=== PATIENT | male | born 1965 | race Caucasian/White ===

== ENCOUNTER → 2018-09-16 | Outpatient (CLI) | payer BC ==
--- NOTE | 2018-09-16 16:57 | XR ---
EXAMINATION TYPE: XR forearm RT DATE OF EXAM: 09/16/2018 COMPARISON: NONE HISTORY: 53-year-old male mid right forearm pain after hit with hockey puck TECHNIQUE: 2 views FINDINGS: The elbow and wrist articulations appear grossly intact. Obliquity at the elbow limits assessment for elbow joint effusion. No acute fracture is identified. No retained radiopaque foreign body. No perio stitis or osteolysis. IMPRESSION: No acute osseous abnormality seen.
== END | disposition home or self-care (01) ==
LOC: RADXRYALE 14:11
PROVIDERS: ATTEND Physician Assistant Medical
DX: M79.631 Pain in right forearm (principal)

== ENCOUNTER 2021-05-25 13:36 | Emergency (ER) | payer BC ==
[2021-05-25 13:43] VITALS: BP 155/101; PULSE 89; RESP 18; TEMP 98.2
[2021-05-25] MEDS ORDERED: LIDOCAINE 1% INJ 10MG/ML (20 ML MDV) SQ ONE (13:55)
[2021-05-25] MEDS ORDERED: DIPH,PERTUS(ACELL)TETVAC-LF 0.5 ML VIAL IM ONE (13:55)
--- NOTE | 2021-05-25 13:57 | ED ---
General Adult HPI - General Chief complaint: Wound/Laceration Stated complaint: L hand thumb laceration Time Seen by Provider: 05/25/21 13:50 Source: patient Mode of arrival: ambulatory Limitations: no limitations - History of Present Illness Initial comments: Dictation was produced using [employer] dictation software. please excuse any grammatical, word or spelling errors. Chief Complaint: 56-year-old male presents with thumb versus table saw History of Present Illness: 56-year-old male he has no significant past medical history he was working on his table saw when his finger fairly brushed the moving table saw blade. He suffered a laceration. Patient states just happened 30 minutes prior to arrival. The ROS documented in this emergency department record has been reviewed and confirmed by me. Those systems with pertinent positive or negative responses have been documented in the HPI. All other systems are other negative and/or noncontributory. PHYSICAL EXAM: General Impression: Alert and oriented x3, not in acute distress HEENT: Normocephalic atraumatic, extra-ocular movements intact, pupils equal and reactive to light bilaterally, mucous membranes moist. Cardiovascular: Heart regular rate and rhythm Chest: Able to complete full sentences, no retractions, no tachypnea Abdomen: abdomen soft, non-tender, non-distended, no organomegaly Musculoskeletal: Pulses present and equal in all extremities, no peripheral edema Motor: no focal deficits noted Neurological: CN II-XII grossly intact, no focal motor or sensory deficits noted Skin: Intact with no visualized rashes Left thumb: 3 cm laceration to the pad of the left thumb, no signs of amputation Psych: Normal affect and mood ED course: 56 y Old male presents with laceration to the left thumb after table saw accident. vital signs upon arrival are within acceptable limits. X-rays unremarkable. Laceration was repaired at bedside. See laceration note. Patient discharged with instructions for suture removal in 7-10 days. - Related Data Allergies Allergy/AdvReac Type Severity Reaction Status Date / Time No Known Allergies Allergy Verified 05/25/21 13:43 Review of Systems ROS Statement: Those systems with pertinent positive or pertinent negative responses have been documented in the HPI. ROS Other: All systems not noted in ROS Statement are negative. Past Medical History Past Medical History: No Reported History History of Any Multi-Drug Resistant Organisms: None Reported Past Surgical History: Hernia Repair Past Psychological History: No Psychological Hx Reported Smoking Status: Never smoker Past Alcohol Use History: Daily Past Drug Use History: None Reported General Exam Limitations: no limitations Course Vital Signs 05/25/21 13:39 Temperature 98.2 F Pulse Rate 89 Respiratory 18 Rate Blood Pressure 155/101 O2 Sat by Pulse 98 Oximetry Procedures - Laceration Laceration #1 Consent Obtained: verbal consent Indication: laceration Site: hand (left thumb) Description: irregular Depth: simple, single layer Anesthetic Used: lidocaine 1% Pre-repair: wound explored, irrigated extensively, deep structures intact Type of Sutures: nylon (6 stitches) Size of Sutures: 4-0 Technique: simple, interrupted Patient Tolerated Procedure: well Disposition Clinical Impression: Laceration Disposition: HOME SELF-CARE Condition: Good Instructions (If sedation given, give patient instructions): Laceration (ED), Care For Your Stitches (ED) Additional Instructions: Suture removal in 7-10 days. Wash with warm soap and water on a daily basis. Seek medical attention if skin starts to appear red and painful, which may be a sign of infection. Is patient prescribed a controlled substance at d/c from ED?: No Referrals: Ronald Logan DO [Primary Care Provider] - 1-2 days
--- NOTE | 2021-05-25 14:19 | XR ---
EXAMINATION TYPE: XR finger LT DATE OF EXAM: 05/25/2021 COMPARISON: NONE HISTORY: Laceration TECHNIQUE: 3 views left thumb FINDINGS: I see no fracture nor dislocation. There is no sign of a foreign body. There is rounded saleem cification on the posterior aspect of the IP joint that could relate to an old injury. There is laceration defect of the soft tissues on the anterior aspect of the distal phalanx. IMPRESSION: No acute bony abnormality. Laceration deformity.
== END 2021-05-25 14:51 | disposition home or self-care (01) ==
LOC: EC 13:36
DX: S61.012A Laceration without foreign body of left thumb without damage to nail, initial encounter (principal); W27.0XXA Contact with workbench tool, initial encounter
CPT/HCPCS: 12002; 99283; 73140; J2001

== ENCOUNTER 2021-12-04 14:11 | Inpatient (IN) | payer BC ==
[2021-12-04 14:59] LABS: Basophils # (A) 0.1 k/uL (0-0.2); Basophils % (A) 0 %; Eosinophils % (A) 0 %; HCT 50.9 % (39.0-53.0); HGB 17.7 gm/dL (13.0-17.5); Lymphocytes # (A) 0.6 k/uL (1.0-4.8); Lymphocytes % (A) 5 %; MCH 32.3 pg (25.0-35.0); MCHC 34.8 g/dL (31.0-37.0); MCV 93.1 fL (80.0-100.0); Mean Platelet Volume 7.7; Monocytes # (A) 0.5 k/uL (0-1.0); Monocytes % (A) 4 %; Neutrophils # (A) 10.9 k/uL (1.3-7.7); Neutrophils % (A) 89 %; Platelet Count 127 k/uL (150-450); RBC 5.47 m/uL (4.30-5.90); RDW 12.9 % (11.5-15.5); WBC 12.2 k/uL (3.8-10.6)
[2021-12-04 15:11] LABS: ALT 333 U/L (4-49); AST 102 U/L (17-59); African American GFR (CKD) >90 (>60 ml/min/1.73 sqM); Albumin 2.9 g/dL (3.5-5.0); Alkaline Phosphatase 85 U/L (38-126); Anion Gap 9 mmol/L; Blood Urea Nitrogen 19 mg/dL (9-20); Calcium 8.4 mg/dL (8.4-10.2); Carbon Dioxide 19 mmol/L (22-30); Chloride 109 mmol/L (98-107); Glucose 169 mg/dL (74-99); Non-African American GFR(CKD) >90 (>60 ml/min/1.73 sqM); Potassium 4.8 mmol/L (3.5-5.1); Sodium 137 mmol/L (137-145); Total Bilirubin 1.6 mg/dL (0.2-1.3); Total Protein 6.7 g/dL (6.3-8.2)
[2021-12-04 15:14] LABS: INR 1.3 (<1.2); Prothrombin Time 13.4 sec (9.0-12.0)
[2021-12-04 15:15] LABS: Partial Thromboplastin Time 18.6 sec (22.0-30.0)
--- NOTE | 2021-12-04 15:19 | XR ---
EXAMINATION TYPE: XR chest 1V portable DATE OF EXAM: 12/04/2021 COMPARISON: None INDICATION: Pneumonia short of breath fever TECHNIQUE: Single frontal view of the chest is obtained. FINDINGS: The heart size is normal. The pulmonary vasculature is normal. Patchy diffuse infiltrates are present within the periphery of the lungs bilaterally. This varies sli ghtly more focal left lower lobe. Findings could be suggestive for atypical pulmonary edema. Clinical correlation recommended. IMPRESSION: 1. Peripheral scattered small infiltrates can be compatible with atypical pneumonia.
--- NOTE | 2021-12-04 16:31 | ED ---
General Adult HPI - General Chief complaint: Shortness of Breath Stated complaint: ANGELA Time Seen by Provider: 12/04/21 14:25 Source: EMS Mode of arrival: EMS Limitations: no limitations - History of Present Illness Initial comments: Patient is a 56-year-old previous healthy male presents emergency room with reported cough, congestion and shortness of for the past 3 weeks. He has had intermittent fevers which have subsided. He has been following with a tele- health doctor that has him on steroids, an inhaler and ivermectin. He has been taking the medications as directed however continues to get worse. Admits to diarrhea and palpitations. No nausea or vomiting. Denies any chest pain. No previous history of pulmonary or cardiac issues. Patient presents via EMS and is 83% on room air. No other alleviating, precipitating or modifying factors - Related Data Home Medications Medication Instructions Recorded Confirmed Benzonatate [Tessalon Perles] 200 mg PO TID PRN 12/04/21 12/04/21 Budesonide [Pulmicort Flexhaler] 2 puff INHALATION RT-BID 12/04/21 12/04/21 Colchicine 0.6 mg PO HS 12/04/21 12/04/21 Colchicine 1.2 mg PO DAILY 12/04/21 12/04/21 Allergies Allergy/AdvReac Type Severity Reaction Status Date / Time No Known Allergies Allergy Verified 12/04/21 15:21 Review of Systems ROS Statement: Those systems with pertinent positive or pertinent negative responses have been documented in the HPI. ROS Other: All systems not noted in ROS Statement are negative. Past Medical History Past Medical History: No Reported History History of Any Multi-Drug Resistant Organisms: None Reported Past Surgical History: Hernia Repair Past Psychological History: No Psychological Hx Reported Smoking Status: Never smoker Past Alcohol Use History: Daily Past Drug Use History: None Reported - Past Family History Father Additional Family Medical History / Comment(s): Heart Stent Mother Family Medical History: Cancer Additional Family Medical History / Comment(s): General Exam Limitations: no limitations General appearance: alert, in distress Head exam: Present: atraumatic, normocephalic, normal inspection Eye exam: Present: normal appearance, PERRL, EOMI. Absent: scleral icterus, conjunctival injection, periorbital swelling ENT exam: Present: normal exam, mucous membranes moist Neck exam: Present: normal inspection. Absent: tenderness, meningismus, lymphadenopathy Respiratory exam: Present: normal lung sounds bilaterally, respiratory distress, accessory muscle use, other (tachypnia). Absent: wheezes, rales, rhonchi, stridor Cardiovascular Exam: Present: regular rate, normal rhythm, tachycardia, normal heart sounds. Absent: systolic murmur, diastolic murmur, rubs, gallop, clicks GI/Abdominal exam: Present: soft, normal bowel sounds. Absent: distended, tenderness, guarding, rebound, rigid Extremities exam: Present: normal inspection, full ROM, normal capillary refill. Absent: tenderness, pedal edema, joint swelling, calf tenderness Back exam: Present: normal inspection Neurological exam: Present: alert, oriented X3, CN II-XII intact Psychiatric exam: Present: normal affect, normal mood Skin exam: Present: warm, dry, intact, normal color. Absent: rash Course Vital Signs 12/04/21 12/04/21 12/04/21 14:24 17:28 19:33 Temperature 99 F 98.2 F Pulse Rate 105 H 93 86 Respiratory 18 18 Rate Blood Pressure 133/98 116/86 O2 Sat by Pulse 83 L 95 Oximetry 12/04/21 12/04/21 12/04/21 19:46 20:00 22:13 Temperature Pulse Rate 86 78 Respiratory 26 H Rate Blood Pressure 115/87 O2 Sat by Pulse 94 L 94 L Oximetry EKG Findings - EKG Comments: EKG Findings:: EKG demonstrates sinus tachycardia with a ventricular rate of 106. Irritable 184. QRS 128. QTC of 491. No acute ST segment elevations or depressions concerning for ischemic changes Medical Decision Making - Medical Decision Making Arrival patient is placed in room 2. He is placed on 2 L of oxygen. Laboratory studies are conducted and a chest x-rays performed. Laboratory studies reveal a white count of 12.2. Platelet count 127. AST and ALTs are elevated. Covid is detected. Chest x-ray demonstrates peripheral scattered small infiltrates consistent with a atypical pneumonia. These results are discussed patient. As he is hypoxic I did recommend admission. Spoke with Dr. Marr who agreed to admit the patient. He is currently awaiting a bed on the floor - Lab Data Result diagrams: 12/06/21 08:42 12/06/21 08:42 Lab Results 12/04/21 12/04/21 12/04/21 Range/Units 14:46 14:46 14:46 WBC 12.2 H (3.8-10.6) k/uL RBC 5.47 (4.30-5.90) m/uL Hgb 17.7 H (13.0-17.5) gm/dL Hct 50.9 (39.0-53.0) % MCV 93.1 (80.0-100.0) fL MCH 32.3 (25.0-35.0) pg MCHC 34.8 (31.0-37.0) g/dL RDW 12.9 (11.5-15.5) % Plt Count 127 L (150-450) k/uL MPV 7.7 Neutrophils % 89 % Lymphocytes % 5 % Monocytes % 4 % Eosinophils % 0 % Basophils % 0 % Neutrophils # 10.9 H (1.3-7.7) k/uL Lymphocytes # 0.6 L (1.0-4.8) k/uL Monocytes # 0.5 (0-1.0) k/uL Eosinophils # 0.0 (0-0.7) k/uL Basophils # 0.1 (0-0.2) k/uL PT 13.4 H (9.0-12.0) sec INR 1.3 H (<1.2) APTT 18.6 L (22.0-30.0) sec D-Dimer (<0.60) mg/L FEU Sodium 137 (137-145) mmol/L Potassium 4.8 (3.5-5.1) mmol/L Chloride 109 H (98-107) mmol/L Carbon Dioxide 19 L (22-30) mmol/L Anion Gap 9 mmol/L BUN 19 (9-20) mg/dL Creatinine 0.90 (0.66-1.25) mg/dL Est GFR (CKD-EPI)AfAm >90 (>60 ml/min/1.73 sqM) Est GFR (CKD-EPI)NonAf >90 (>60 ml/min/1.73 sqM) Glucose 169 H (74-99) mg/dL Plasma Lactic Acid [place] (0.7-2.0) mmol/L Calcium 8.4 (8.4-10.2) mg/dL Total Bilirubin 1.6 H (0.2-1.3) mg/dL AST 102 H (17-59) U/L ALT 333 H (4-49) U/L Alkaline Phosphatase 85 (38-126) U/L Troponin I (0.000-0.034) ng/mL NT-Pro-B Natriuret Pep pg/mL Total Protein 6.7 (6.3-8.2) g/dL Albumin 2.9 L (3.5-5.0) g/dL Procalcitonin (0.02-0.09) ng/mL Influenza Type A (PCR) (Not Detectd) Influenza Type A RNA (Not Detectd) Influenza Type B (PCR) (Not Detectd) RSV (PCR) (Not Detectd) SARS-CoV-2 (PCR) (Not Detectd) 12/04/21 12/04/21 12/04/21 Range/Units 14:46 14:46 14:46 WBC (3.8-10.6) k/uL RBC (4.30-5.90) m/uL Hgb (13.0-17.5) gm/dL Hct (39.0-53.0) % MCV (80.0-100.0) fL MCH (25.0-35.0) pg MCHC (31.0-37.0) g/dL RDW (11.5-15.5) % Plt Count (150-450) k/uL MPV Neutrophils % % Lymphocytes % % Monocytes % % Eosinophils % % Basophils % % Neutrophils # (1.3-7.7) k/uL Lymphocytes # (1.0-4.8) k/uL Monocytes # (0-1.0) k/uL Eosinophils # (0-0.7) k/uL Basophils # (0-0.2) k/uL PT (9.0-12.0) sec INR (<1.2) APTT (22.0-30.0) sec D-Dimer (<0.60) mg/L FEU Sodium (137-145) mmol/L Potassium (3.5-5.1) mmol/L Chloride (98-107) mmol/L Carbon Dioxide (22-30) mmol/L Anion Gap mmol/L BUN (9-20) mg/dL Creatinine (0.66-1.25) mg/dL Est GFR (CKD-EPI)AfAm (>60 ml/min/1.73 sqM) Est GFR (CKD-EPI)NonAf (>60 ml/min/1.73 sqM) Glucose (74-99) mg/dL Plasma Lactic Acid [place] 1.3 (0.7-2.0) mmol/L Calcium (8.4-10.2) mg/dL Total Bilirubin (0.2-1.3) mg/dL AST (17-59) U/L ALT (4-49) U/L Alkaline Phosphatase (38-126) U/L Troponin I <0.012 (0.000-0.034) ng/mL NT-Pro-B Natriuret Pep 52 pg/mL Total Protein (6.3-8.2) g/dL Albumin (3.5-5.0) g/dL Procalcitonin (0.02-0.09) ng/mL Influenza Type A (PCR) (Not Detectd) Influenza Type A RNA (Not Detectd) Influenza Type B (PCR) (Not Detectd) RSV (PCR) (Not Detectd) SARS-CoV-2 (PCR) (Not Detectd) 12/04/21 12/04/21 12/04/21 Range/Units 14:46 14:46 14:46 WBC (3.8-10.6) k/uL RBC (4.30-5.90) m/uL Hgb (13.0-17.5) gm/dL Hct (39.0-53.0) % MCV (80.0-100.0) fL MCH (25.0-35.0) pg MCHC (31.0-37.0) g/dL RDW (11.5-15.5) % Plt Count (150-450) k/uL MPV Neutrophils % % Lymphocytes % % Monocytes % % Eosinophils % % Basophils % % Neutrophils # (1.3-7.7) k/uL Lymphocytes # (1.0-4.8) k/uL Monocytes # (0-1.0) k/uL Eosinophils # (0-0.7) k/uL Basophils # (0-0.2) k/uL PT (9.0-12.0) sec INR (<1.2) APTT (22.0-30.0) sec D-Dimer 30.87 H (<0.60) mg/L FEU Sodium (137-145) mmol/L Potassium (3.5-5.1) mmol/L Chloride (98-107) mmol/L Carbon Dioxide (22-30) mmol/L Anion Gap mmol/L BUN (9-20) mg/dL Creatinine (0.66-1.25) mg/dL Est GFR (CKD-EPI)AfAm (>60 ml/min/1.73 sqM) Est GFR (CKD-EPI)NonAf (>60 ml/min/1.73 sqM) Glucose (74-99) mg/dL Plasma Lactic Acid [place] (0.7-2.0) mmol/L Calcium (8.4-10.2) mg/dL Total Bilirubin (0.2-1.3) mg/dL AST (17-59) U/L ALT (4-49) U/L Alkaline Phosphatase (38-126) U/L Troponin I (0.000-0.034) ng/mL NT-Pro-B Natriuret Pep pg/mL Total Protein (6.3-8.2) g/dL Albumin (3.5-5.0) g/dL Procalcitonin (0.02-0.09) ng/mL Influenza Type A (PCR) Not Detected (Not Detectd) Influenza Type A RNA Not Detected (Not Detectd) Influenza Type B (PCR) Not Detected Not Detected (Not Detectd) RSV (PCR) Not Detected (Not Detectd) SARS-CoV-2 (PCR) Detected A (Not Detectd) 12/04/21 Range/Units 14:46 WBC (3.8-10.6) k/uL RBC (4.30-5.90) m/uL Hgb (13.0-17.5) gm/dL Hct (39.0-53.0) % MCV (80.0-100.0) fL MCH (25.0-35.0) pg MCHC (31.0-37.0) g/dL RDW (11.5-15.5) % Plt Count (150-450) k/uL MPV Neutrophils % % Lymphocytes % % Monocytes % % Eosinophils % % Basophils % % Neutrophils # (1.3-7.7) k/uL Lymphocytes # (1.0-4.8) k/uL Monocytes # (0-1.0) k/uL Eosinophils # (0-0.7) k/uL Basophils # (0-0.2) k/uL PT (9.0-12.0) sec INR (<1.2) APTT (22.0-30.0) sec D-Dimer (<0.60) mg/L FEU Sodium (137-145) mmol/L Potassium (3.5-5.1) mmol/L Chloride (98-107) mmol/L Carbon Dioxide (22-30) mmol/L Anion Gap mmol/L BUN (9-20) mg/dL Creatinine (0.66-1.25) mg/dL Est GFR (CKD-EPI)AfAm (>60 ml/min/1.73 sqM) Est GFR (CKD-EPI)NonAf (>60 ml/min/1.73 sqM) Glucose (74-99) mg/dL Plasma Lactic Acid [place] (0.7-2.0) mmol/L Calcium (8.4-10.2) mg/dL Total Bilirubin (0.2-1.3) mg/dL AST (17-59) U/L ALT (4-49) U/L Alkaline Phosphatase (38-126) U/L Troponin I (0.000-0.034) ng/mL NT-Pro-B Natriuret Pep pg/mL Total Protein (6.3-8.2) g/dL Albumin (3.5-5.0) g/dL Procalcitonin 0.09 (0.02-0.09) ng/mL Influenza Type A (PCR) (Not Detectd) Influenza Type A RNA (Not Detectd) Influenza Type B (PCR) (Not Detectd) RSV (PCR) (Not Detectd) SARS-CoV-2 (PCR) (Not Detectd) Disposition Clinical Impression: Hypoxia, Atypical pneumonia, COVID-19 Disposition: ADMITTED IP TO THIS HOSP Condition: Serious Is patient prescribed a controlled substance at d/c from ED?: No Decision to Admit Reason: Admit from EC Decision Date: 12/04/21 Decision Time: 16:32
[2021-12-04] MEDS ORDERED: IBUPROFEN 400 MG TAB PO PRN (16:33)
[2021-12-04] MEDS ORDERED: NALOXONE 0.4 MG/ML 1 ML VIAL IV PRN (16:33)
[2021-12-04] MEDS ORDERED: ACETAMINOPHEN TAB 325 MG TAB PO PRN (16:33)
[2021-12-04] MEDS: SODIUM CHLORIDE 0.9% 1,000 ML IV SCH (17:27)
[2021-12-04] MEDS: DEXAMETHASONE SOD PHOSPHATE 10 MG/ML 1 ML VIAL IV SCH (17:27)
[2021-12-04] MEDS: CHOLECALCIFEROL 25 MCG (1000 IU) TABLET PO SCH (17:28)
[2021-12-04] MEDS: ENOXAPARIN 40 MG/0.4 ML SYRINGE SQ SCH (17:28)
--- NOTE | 2021-12-04 17:56 | HP ---
HISTORY AND PHYSICAL CHIEF COMPLAINT: Shortness of breath and cough. HISTORY OF PRESENT ILLNESS: This 56-year-old gentleman with a past history of hernia repair, no other significant medical illness, being followed by Dr. Logan in the outpatient setting is complaining of cough and sputum for the last 4 weeks. The patient did not test for Covid but around Mayra time, patient felt better, but subsequently because of increasing shortness of breath and cough, the patient came to [facility] and was admitted to the hospital for further evaluation and treatment. Pulse ox found to be 76% improved with supplemental oxygen at this time. The patient is apparently also seeing a doctor near [place] over the telephone and is getting Covid medications according to him including Ivermectin. There is no history of any fever, rigors or chills. No history of headache, loss of consciousness, seizures. On admission, the patient is found to have elevated WBC and also elevated LFTs indicating possible acute hepatitis secondary to Covid 19. Influenza is negative. The patient also was found to be dehydrated. The p.o. intake appears to be significantly reduced over the past several weeks. PAST MEDICAL HISTORY: History of hernia repair. MEDICATIONS: Prior to admission reviewed and include: 1. Colchicine 1.2 mg daily and 0.6 mg q.h.s. 2. Pulmicort 2 puffs b.i.d. 3. Tessalon 200 mg t.i.d. p.r.n. ALLERGIES: None. FAMILY HISTORY: No history of heart disease or strokes. SOCIAL HISTORY: History of alcohol daily. No history of smoking. 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 REVIEW OF SYSTEMS: ENT: No diminished vision. No diminished hearing. CARDIOVASCULAR: No angina or palpitations. RESPIRATORY: As mentioned earlier. GI as mentioned earlier. : No dysuria. NERVOUS SYSTEM: No numbness or weakness. ALLERGY/IMMUNOLOGY: No asthma or hayfever. MUSCULOSKELETAL: As mentioned earlier. HEMATOLOGY/ONCOLOGY: No history of anemia. ENDOCRINE: No history of diabetes. CONSTITUTIONAL: As mentioned earlier. DERMATOLOGY: Negative. RHEUMATOLOGY: Negative. PSYCHIATRIC: As mentioned earlier. PHYSICAL EXAMINATION: The patient is alert and oriented times three. Pulse 105. Blood pressure 130/90, respiration 18, temperature 99 degrees, pulse ox 83 percent on room air. HEENT is conjunctivae normal. Oral mucosa dry. NECK is no JVD. CARDIOVASCULAR: S1, S2 muffled. RESPIRATORY: Breath sounds diminished in the bases. ABDOMEN: Soft. Nontender. No mass palpable. LEGS: No edema. No swelling. NERVOUS SYSTEM: Higher functions as mentioned earlier. Moves all 4 limbs. No focal motor or sensory deficits. LYMPHATICS: No lymph nodes palpable in the neck, axillae or groin. SKIN: No ulcer, no rash and no bleeding. JOINTS: No active deforming arthropathy. LABS: At this time shows WBC 12.2, hemoglobin 17.7, platelets are 127. Sodium 137, potassium 4.8. AST is 102, ALT is 333. ASSESSMENT: 1. Acute Covid 19 infection possibly with acute bilateral interstitial pneumonia with acute hypoxic respiratory failure secondary to Covid 19. 2. Increased WBC. 3. Increased hemoglobin. 4. Thrombocytopenia. 5. Elevated INR. 6. Increased random glucose. 7. Elevated bilirubin, AST/ALT possibly hepatitis secondary to Covid 19. 8. Hypoalbuminemia with some mild protein-calorie malnutrition. 9. Rule out chronic liver disease. RECOMMENDATIONS AND DISCUSSION: This 56-year-old gentleman who presented with multiple complex medical issues, we will monitor the patient closely, continue the current medications. I will order a D-dimer. If the D-dimer is elevated, I would recommend a CT angio as well as DVT of the legs. Otherwise obtain cultures, procalcitonin, bronchodilators, Lovenox, Dexamethasone, Pulmonology and Infectious Disease evaluation. Prognosis guarded because of multiple medical problems. Discussed with the family at length, understands and agrees. A copy of this dictation being forwarded to Dr. Logan who is the primary care physician. MMODL / ENRIQUEN: [id number] / MTDHollis
[2021-12-04] MEDS ORDERED: ALBUTEROL NEBULIZED 2.5 MG/3 ML INHALATION SCH (20:00)
--- NOTE | 2021-12-04 20:03 | CT ---
EXAMINATION TYPE: CT angio chest DATE OF EXAM: 12/04/2021 COMPARISON: None HISTORY: SOB, +covid CT DLP: 449.2 mGycm Automated exposure control for dose reduction was used. CONTRAST: Performed with IV Contrast, patient injected with 100 mL of Isovue 370. Images obtained from the thoracic inlet to the diaphragm with IV contrast. There are Three-D postproc essed images. There is extensive patchy interstitial and airspace peripheral infiltrates throughout both lungs. Hea rt size is normal. There are no hilar masses. Thoracic aorta is intact. There is no aneurysm or disse ction. There is normal contrast opacification of the pulmonary arteries. There is suboptimal amount of contr ast density in the smaller branches of the pulmonary arteries. There are no filling defect. The thora cic spine is intact. Sternum is intact. IMPRESSION: No evidence of pulmonary embolism. Extensive bilateral pulmonary infiltrates consistent with multifocal pneumonia.
[2021-12-05] MEDS: ALBUTEROL HFA INHALER INHALATION SCH ×4 (04:16→20:38)
[2021-12-05] MEDS: SODIUM CHLORIDE 0.9% 1,000 ML IV SCH ×2 (06:46→21:24)
[2021-12-05 07:30] LABS: Basophils % (A) 0 %; Eosinophils % (A) 0 %; HGB 16.5 gm/dL (13.0-17.5); Lymphocytes # (A) 0.9 k/uL (1.0-4.8); Lymphocytes % (A) 9 %; MCH 32.3 pg (25.0-35.0); MCHC 33.7 g/dL (31.0-37.0); MCV 95.9 fL (80.0-100.0); Mean Platelet Volume 11.2; Monocytes # (A) 0.7 k/uL (0-1.0); Monocytes % (A) 7 %; Neutrophils # (A) 8.3 k/uL (1.3-7.7); Neutrophils % (A) 82 %; Platelet Count 124 k/uL (150-450); RBC 5.11 m/uL (4.30-5.90); WBC 10.1 k/uL (3.8-10.6)
[2021-12-05] MEDS: ENOXAPARIN 40 MG/0.4 ML SYRINGE SQ SCH (07:35)
[2021-12-05] MEDS: DEXAMETHASONE SOD PHOSPHATE 10 MG/ML 1 ML VIAL IV SCH (07:35)
[2021-12-05] MEDS: CHOLECALCIFEROL 25 MCG (1000 IU) TABLET PO SCH (07:36)
[2021-12-05 07:45] LABS: ALT 321 U/L (4-49); AST 90 U/L (17-59); African American GFR (CKD) >90 (>60 ml/min/1.73 sqM); Albumin 2.7 g/dL (3.5-5.0); Albumin/Globulin Ratio 0.8; Alkaline Phosphatase 71 U/L (38-126); Anion Gap 7 mmol/L; Blood Urea Nitrogen 20 mg/dL (9-20); Calcium 8.2 mg/dL (8.4-10.2); Carbon Dioxide 22 mmol/L (22-30); Chloride 109 mmol/L (98-107); Globulin 3.6 g/dL; Glucose 141 mg/dL (74-99); Non-African American GFR(CKD) >90 (>60 ml/min/1.73 sqM); Sodium 138 mmol/L (137-145); Total Bilirubin 1.4 mg/dL (0.2-1.3); Total Protein 6.3 g/dL (6.3-8.2)
[2021-12-05] MEDS ORDERED: bisacodyL 5 MG TABLET.DR PO PRN (07:51)
[2021-12-05] MEDS ORDERED: DOCUSATE 100 MG CAP PO SCH (09:00)
--- NOTE | 2021-12-05 11:21 | US ---
EXAMINATION TYPE: US venous doppler duplex LE DATE OF EXAM: 12/05/2021 10:52 AM COMPARISON: NONE CLINICAL HISTORY: dvt. COVID positive with swelling. Exam done portable on covid patient SIDE PERFORMED: Bilateral TECHNIQUE: The lower extremity deep venous system is examined utilizing real time linear array sonog ebony with graded compression, doppler sonography and color-flow sonography. VESSELS IMAGED: Common Femoral Vein Deep Femoral Vein Greater Saphenous Vein * Femoral Vein Popliteal Vein Small Saphenous Vein * Proximal Calf Veins (* superficial vessels) Right Leg: Appears negative for DVT Left Leg: Appears negative for DVT Left popliteal fossa and upper calf: thrombus seen within small saphenous vein Grayscale, color doppler, spectral doppler imaging performed of the deep veins of the bilateral lower extremities. IMPRESSION: No acute DVT in either lower extremity. Acute superficial thrombus left lower extremity below level of knee noted towards end of study.
--- NOTE | 2021-12-05 15:38 | P.CNPUL ---
History of Present Illness Consult date: 12/05/21 Requesting physician: Amarilys Marr Reason for consult: dyspnea, cough, hypoxemia, pneumonia, abnormal CXR/CT Chief complaint: Shortness of breath, cough, fever, weakness. History of present illness: Pulmonary consult dated 12/05/2021. 56-year-old previously healthy male, who presents to the emergency department on December 04, complaining of multiple complaints over the last 3 weeks, including fever, chills, cough, shortness of breath, muscle aches, weakness, etc. The patient apparently saw his primary doctor initially, and was treated with some corticosteroids and antibiotics. He states that that did nothing. More recently, he's been working with a tell how physician, and he was prescribed a steroid inhaler, colchicine, ivermectin, and a number of other treatments and therapies. The patient also apparently received Tessalon Perles, and a strong maybe codeine containing cough syrup. Unfortunately, his symptoms have progressed, and the patient is currently now admitted to the hospital. The patient is seen in room 479. Currently, the patient's getting oxygen at 7 L/m. Certainly, he is not a candidate for REM. The patient is not a candidate yet for IRENE. The patient had a chest x-ray which showed diffuse bilateral infiltrates. A CT angiogram showed bilateral diffuse groundglass opacities, but no pulmonary embolism, and Dopplers of the lower extremities were negative. The patient is a candidate for Decadron, Lovenox, and vitamin C, vitamin D3, and zinc. The patient has no past medical history, has only had a hernia repair, and is a lifelong nonsmoker. Review of Systems REVIEW OF SYSTEMS: CONSTITUTIONAL: Fever/chills, muscle aches, weakness, fatigue. NEUROLOGIC: [ Negative.] HEENT: [ Negative.] CARDIAC: [Negative.] PULMONARY: Shortness of breath, heart cough, chest congestion. GI: Decreased appetite. : [Negative.] RHEUMATOLOGIC: Muscle and joint aches. IMMUNOLOGIC: [ Negative.] ENDOCRINE: [Negative. ] DERMATOLOGIC: [Negative.] Past Medical History Past Medical History: No Reported History History of Any Multi-Drug Resistant Organisms: None Reported Past Surgical History: Hernia Repair Additional Past Surgical History / Comment(s): Thumb Surgery May 2021 Past Anesthesia/Blood Transfusion Reactions: Postoperative Nausea & Vomiting (PONV) Past Psychological History: No Psychological Hx Reported Smoking Status: Former smoker Past Alcohol Use History: Daily Past Drug Use History: None Reported - Past Family History Father Additional Family Medical History / Comment(s): Heart Stent Mother Family Medical History: Cancer Additional Family Medical History / Comment(s): Medications and Allergies Home Medications Medication Instructions Recorded Confirmed Type Benzonatate [Tessalon Perles] 200 mg PO TID PRN 12/04/21 12/04/21 History Budesonide [Pulmicort Flexhaler] 2 puff INHALATION RT-BID 12/04/21 12/04/21 History Colchicine 0.6 mg PO HS 12/04/21 12/04/21 History Colchicine 1.2 mg PO DAILY 12/04/21 12/04/21 History Allergies Allergy/AdvReac Type Severity Reaction Status Date / Time No Known Allergies Allergy Verified 12/04/21 15:21 Physical Exam Osteopathic Statement: *. No significant issues noted on an osteopathic structural exam other than those noted in the History and Physical/Consult. Vitals: Vital Signs Temp Pulse Pulse Resp BP BP Pulse Ox 12/05/21 14:40 98.0 F 82 14 100/64 98 12/05/21 10:15 97.9 F 104 H 24 133/79 93 L 12/05/21 06:00 98.0 F 87 18 118/81 94 L 12/05/21 02:00 98.0 F 78 18 118/83 93 L 12/05/21 00:40 85 21 12/05/21 00:35 97.8 F 85 21 121/81 94 L 12/04/21 22:13 78 26 H 115/87 94 L 12/04/21 20:00 94 L 12/04/21 19:46 86 12/04/21 19:33 86 12/04/21 17:28 98.2 F 93 18 116/86 95 Intake and Output 12/05/21 12/05/21 12/05/21 06:59 14:59 22:59 Intake Total 600 Balance 600 Intake: Intake, IV Titration 600 Amount Sodium Chloride 0.9% 1, 600 000 ml @ 75 mls/hr IV . [id number] [facility] Rx#:[id number] Other: Voiding Method Urinal # Voids 1 # Bowel Movements 1 Weight 102.058 kg Mild conversational dyspnea. Currently on 7 L high flow O2, with saturations 98%. No use of accessory muscles. HEENT examination is grossly unremarkable. Neck supple. Full range of motion. No adenopathy thyromegaly or neck vein di stention. Cardiovascular examination reveals regular rhythm rate. S1-S2 normal. No S3 or S4. No discernible murmur noted. Heart sounds are distant. Heart rate 82 bpm. Lungs reveal bibasilar crackles. No wheezes or rhonchi. Breath sounds equal. Abdomen soft bowel sounds are heard. No masses or tenderness. Extremities are intact. No cyanosis clubbing or edema. Skin is without rash or lesion. Neurologic examination is brief but nonfocal. Results - Laboratory Findings CBC and BMP: 12/05/21 02:04 12/05/21 02:04 PT/INR, D-dimer PT 13.4 sec (9.0-12.0) H 12/04/21 14:46 INR 1.3 (<1.2) H 12/04/21 14:46 D-Dimer 13.94 mg/L FEU (<0.60) H 12/05/21 08:06 Abnormal lab findings: Abnormal Labs 12/04/21 12/04/21 12/04/21 14:46 14:46 14:46 WBC 12.2 H Hgb 17.7 H Plt Count 127 L Neutrophils # 10.9 H Lymphocytes # 0.6 L PT 13.4 H INR 1.3 H APTT 18.6 L D-Dimer Chloride 109 H Carbon Dioxide 19 L Glucose 169 H Calcium Total Bilirubin 1.6 H AST 102 H ALT 333 H C-Reactive Protein Albumin 2.9 L SARS-CoV-2 (PCR) 12/04/21 12/04/21 12/05/21 14:46 14:46 02:04 WBC Hgb Plt Count 124 L Neutrophils # 8.3 H Lymphocytes # 0.9 L PT INR APTT D-Dimer 30.87 H Chloride Carbon Dioxide Glucose Calcium Total Bilirubin AST ALT C-Reactive Protein Albumin SARS-CoV-2 (PCR) Detected A 12/05/21 12/05/21 12/05/21 02:04 08:06 08:06 WBC Hgb Plt Count Neutrophils # Lymphocytes # PT INR APTT D-Dimer 13.94 H Chloride 109 H Carbon Dioxide Glucose 141 H Calcium 8.2 L Total Bilirubin 1.4 H AST 90 H ALT 321 H C-Reactive Protein 3.2 H Albumin 2.7 L SARS-CoV-2 (PCR) - Diagnostic Findings Chest x-ray: image reviewed CT scan - chest: image reviewed U/S of Legs: image reviewed Assessment and Plan Assessment: Acute hypoxemic respiratory failure, secondary to coronavirus associated pneumonia. Elevated inflammatory marker secondary to coronavirus infection. Mild transaminitis secondary to coronavirus infection. Mild hemoconcentration, likely secondary to dehydration. Mild thrombocytopenia. Plan: Plan dated 12/05/2021. The patient will require Decadron, Lovenox, as well as vitamin C, vitamin D3, and zinc. The patient should not receive colchicine, famotidine, ivermectin, or other non-approved therapies. The patient's x-rays, labs, medications are reviewed. The patient was previously healthy. The patient has been on a steroid inhaler, antibiotics colchicine, ivermectin, etc. Prognosis is guarded. I'm hoping the patient turns around. Time with Patient: Greater than 30
[2021-12-05 16:37] LABS: Appearance,Urine Clear (Clear); Bilirubin,Urine Negative (Negative); Blood,Urine Negative (Negative); Color,Urine Yellow; Glucose,Urine (UA) Negative (Negative); Ketones,Urine Negative (Negative); Leukocyte Esterase,Urine Negative (Negative); Nitrite,Urine Negative (Negative); PH, Urine 5.5 (5.0-8.0); Protein,Urine Trace (Negative); Urobilinogen,Urine <2.0 mg/dL (<2.0)
--- NOTE | 2021-12-05 18:09 | PN ---
PROGRESS NOTE DATE OF SERVICE: 12/05/2021 HISTORY OF PRESENT ILLNESS: This 56-year-old gentleman who was admitted with shortness of breath and cough has acute Covid-19, acute Covid-19 bilateral interstitial pneumonia. The patient is found to be hypoxic. The chest CTA showed extensive bilateral pulmonary infiltrates highly suggestive of Covid-19 pneumonia. Otherwise, there was no pulmonary embolism. The patient also underwent ultrasound of the leg which showed no evidence of any DVT at this time. The patient is being also followed by multiple consultants. Acute superficial thrombosis of the left lower extremity below the level of knee was noted towards the end of the study. PAST MEDICAL HISTORY: Reviewed. REVIEW OF SYSTEMS: Cardiovascular system: No angina. Respiratory system: As mentioned earlier. GI: As mentioned earlier. : No dysuria. Nervous system: No numbness or weakness. CURRENT MEDICATIONS: Reviewed include Tylenol, Ventolin, ( ), Symbicort, cholecalciferol, dexamethasone. Doses reviewed. PHYSICAL EXAMINATION: Patient is alert and oriented x3. Pulse 82, blood pressure 110/64, respiration 14, temperature 98 degrees, Pulse ox 98% on 7 L. HEENT: Conjunctivae normal. Oral mucosa moist. NECK: No jugular venous distention. No lymph node enlargement. CARDIOVASCULAR: S1, S2, muffled. No S3, no S4, RESPIRATORY: Diminished breath sounds at the bases. A few scattered rhonchi. ABDOMEN: Soft, nontender. LEGS: No edema, no swelling. NERVOUS SYSTEM: No focal deficits. LABS: The platelets are 124. Otherwise, D-dimer is 13.94 and ( ) is 3.2. Covid-19 is positive. ASSESSMENT: 1. Acute Covid-19 infection with acute bilateral interstitial pneumonia with acute hypoxic respiratory failure secondary to Covid-19. 2. Acute superficial thrombosis of the left lower extremity. 3. Increased WBC. 4. Increased hemoglobin. 5. Thrombocytopenia. 6. Elevated INR. 7. Increased random glucose. 8. Elevated bilirubin, AST, ALT possibly hepatitis secondary to Covid-19. 9. Hypoalbuminemia with some mild protein-calorie malnutrition. 10.Rule out chronic liver disease. RECOMMENDATIONS: Recommend to continue current medications, continue symptomatic treatment. Otherwise, at this time I recommend continue the current medication. I would also recommend ultrasound of the liver and hepatitis panel also. Otherwise, Dr. German for hematology/oncology evaluation. Guarded prognosis because of multiple complex medical issues. Further recommendations to follow. The patient is currently on Lovenox 40 mg subcu daily. MMODL / IJN: [id number] /
[2021-12-05] MEDS: SYMBICORT 160-4.5 MCG INHALER INHALATION SCH (20:38)
[2021-12-06] MEDS: ALBUTEROL HFA INHALER INHALATION SCH ×4 (08:06→19:36)
[2021-12-06] MEDS: SYMBICORT 160-4.5 MCG INHALER INHALATION SCH ×2 (08:07→19:34)
[2021-12-06] MEDS: ENOXAPARIN 40 MG/0.4 ML SYRINGE SQ SCH (08:46)
[2021-12-06] MEDS: ZINC SULFATE 220 MG CAP PO SCH (08:46)
[2021-12-06] MEDS: DEXAMETHASONE SOD PHOSPHATE 10 MG/ML 1 ML VIAL IV SCH (08:46)
[2021-12-06] MEDS: CHOLECALCIFEROL 25 MCG (1000 IU) TABLET PO SCH (08:46)
[2021-12-06] MEDS: ASCORBIC ACID 500 MG TAB PO SCH (08:46)
[2021-12-06] MEDS: SODIUM CHLORIDE 0.9% 1,000 ML IV SCH ×2 (08:48→22:29)
[2021-12-06 09:06] LABS: Basophils % (A) 0 %; Eosinophils # (A) 0.1 k/uL (0-0.7); Eosinophils % (A) 1 %; HCT 47.3 % (39.0-53.0); Lymphocytes # (A) 1.6 k/uL (1.0-4.8); Lymphocytes % (A) 18 %; MCH 32.3 pg (25.0-35.0); MCHC 33.9 g/dL (31.0-37.0); MCV 95.1 fL (80.0-100.0); Mean Platelet Volume 7.6; Monocytes # (A) 0.6 k/uL (0-1.0); Monocytes % (A) 7 %; Neutrophils # (A) 6.5 k/uL (1.3-7.7); Neutrophils % (A) 73 %; Platelet Count 151 k/uL (150-450); RBC 4.97 m/uL (4.30-5.90); RDW 12.9 % (11.5-15.5); WBC 8.8 k/uL (3.8-10.6)
[2021-12-06 09:21] LABS: ALT 245 U/L (4-49); AST 90 U/L (17-59); African American GFR (CKD) >90 (>60 ml/min/1.73 sqM); Albumin 2.5 g/dL (3.5-5.0); Albumin/Globulin Ratio 0.7; Alkaline Phosphatase 68 U/L (38-126); Anion Gap 1 mmol/L; Blood Urea Nitrogen 20 mg/dL (9-20); Calcium 8.1 mg/dL (8.4-10.2); Carbon Dioxide 27 mmol/L (22-30); Chloride 107 mmol/L (98-107); Globulin 3.5 g/dL; Glucose 88 mg/dL (74-99); LDH 1042 U/L (313-618); Non-African American GFR(CKD) 83 (>60 ml/min/1.73 sqM); Potassium 4.6 mmol/L (3.5-5.1); Sodium 135 mmol/L (137-145); Total Bilirubin 1.7 mg/dL (0.2-1.3)
--- NOTE | 2021-12-06 09:27 | P.CONS ---
History of Present Illness - Reason for Consult Consult date: 12/05/21 covid 19 Requesting physician: Amarilys Marr - Chief Complaint shortness of breath x 3 weeks - History of Present Illness History of present illness : Patient is a 56-year-old male presenting to the ER for evaluation of increasing shortness of breath cough and congestion in this patient has been complaining of shortness of breath for more than 10 days he reported to the ER physician 3 weeks patient complaining of intermittent fever, patient did have a telehealth visit with And has been treated with steroids inhaler and ivermectin however the patient did have a progressive worsening shortness of breath on minimal exertion and even at rest patient also have a cough which is moderate intensity but no purulent sputum but denies any nausea no vomiting no chest pain had no abdominal pain he did have some diarrhea on arrival to the emergency patient was hypoxic with O2 sats of 83% on room air with the 7 the patient was evaluated by ER physician on arrival to the ER the patient has been afebrile patient did have white count of 12 point 2 repeat is normal with evidence of lymphopenia D-dimer is elevated creatinine is normal liver sounds are elevated clay PCR was positive influenza and RSV were negative blood cultures apparently currently pending patient did have a chest x- ray peripheral scattered small infiltrate compatible with atypical pneumonia patient did have CT angiogram of the chest that has been negative for PE did shows extensive bilateral pulmonary infiltrate consistent with multifocal pneumonia patient has been admitted to hospital infectious disease was consulted for further management Review of system: CONSTITUTIONAL: Positive for weakness along with intermittent fever. EYES: No complaint. ENT: No complaint. RESPIRATORY as per history of present illness. CARDIOVASCULAR: No complaint. GENITOURINARY: No complaint. GASTROINTESTINAL: As per history of present illness. MUSCULOSKELETAL: No complaint. INTEGUMENTARY: No complaint. PSYCHOLOGIC: No complaint. ENDOCRINE: No complaint. NEUROLOGIC: No complaint. Past medical history : Reviewed, documented below Past surgical history : Reviewed, documented below Social history: Reviewed, documented below Medications: Reviewed, as documented below EXAMINATION: Vital sigans= Reviewed and documented below GENERAL DESCRIPTION: Middle-aged male lying in bed, no distress. No tachypnea or accessory muscle of respiration use. HEENT: Shows Pallor , no scleral icterus. Oral mucous membrane is dry. NECK: Trachea central, no thyromegaly. LUNGS: Unlabored breathing. Coarse breath sounds bilaterally. No wheeze or crackle. HEART: S1, S2, regular rate and rhythm. ABDOMEN: Soft, no tenderness , guarding or rigidity EXTREMITIES: No edema of feet. SKIN: No rash, no masses palpable. NEUROLOGICAL: The patient is awake, alert, oriented x3, mood and affect normal. LABS AND RADIOLOGY: Reviewed results see below Assessment : Patient presented to hospital with acute respiratory failure secondary to COVID-19 pneumonia in this patient symptom has been going on for more than 2 weeks now and is currently out of the therapeutic window for remdesivir patient seem to have failed to respond to the outpatient ivermectin and steroid therapy and evidence of any secondary bacterial pneumonia Plan: 1-patient to continue with the Decadron Lovenox zinc and ascorbic acid 2-if any worsening of respiratory status may qualify for Baricitinab 3-droplet isolation and respiratory support We will follow on clinical condition and cultures to further adjust medication if needed Thank you for this consultation we will follow the patient along with you Past Medical History Past Medical History: No Reported History History of Any Multi-Drug Resistant Organisms: None Reported Past Surgical History: Hernia Repair Additional Past Surgical History / Comment(s): Thumb Surgery May 2021 Past Anesthesia/Blood Transfusion Reactions: Postoperative Nausea & Vomiting (PONV) Past Psychological History: No Psychological Hx Reported Smoking Status: Former smoker Past Alcohol Use History: Daily Past Drug Use History: None Reported - Past Family History Father Additional Family Medical History / Comment(s): Heart Stent Mother Family Medical History: Cancer Additional Family Medical History / Comment(s): Medications and Allergies Home Medications Medication Instructions Recorded Confirmed Type Benzonatate [Tessalon Perles] 200 mg PO TID PRN 12/04/21 12/04/21 History Budesonide [Pulmicort Flexhaler] 2 puff INHALATION RT-BID 12/04/21 12/04/21 History Colchicine 0.6 mg PO HS 12/04/21 12/04/21 History Colchicine 1.2 mg PO DAILY 12/04/21 12/04/21 History Allergies Allergy/AdvReac Type Severity Reaction Status Date / Time No Known Allergies Allergy Verified 12/04/21 15:21 Physical Exam Vitals: Vital Signs Temp Pulse Pulse Resp BP BP Pulse Ox 12/05/21 14:40 98.0 F 82 14 100/64 98 12/05/21 10:15 97.9 F 104 H 24 133/79 93 L 12/05/21 06:00 98.0 F 87 18 118/81 94 L 12/05/21 02:00 98.0 F 78 18 118/83 93 L 12/05/21 00:40 85 21 12/05/21 00:35 97.8 F 85 21 121/81 94 L 12/04/21 22:13 78 26 H 115/87 94 L 12/04/21 20:00 94 L 12/04/21 19:46 86 12/04/21 19:33 86 12/04/21 17:28 98.2 F 93 18 116/86 95 Intake and Output 12/05/21 12/05/21 12/05/21 06:59 14:59 22:59 Intake Total 600 Balance 600 Intake: Intake, IV Titration 600 Amount Sodium Chloride 0.9% 1, 600 000 ml @ 75 mls/hr IV . [id number] [facility] Rx#:[id number] Other: Voiding Method Urinal # Voids 1 # Bowel Movements 1 Weight 102.058 kg Results CBC & Chem 7: 12/06/21 08:42 12/06/21 08:42 Labs: Abnormal Lab Results - Last 24 Hours (Table) 12/04/21 12/04/21 12/05/21 Range/Units 14:46 14:46 02:04 Plt Count 124 L (150-450) k/uL Neutrophils # 8.3 H (1.3-7.7) k/uL Lymphocytes # 0.9 L (1.0-4.8) k/uL D-Dimer 30.87 H (<0.60) mg/L FEU Chloride (98-107) mmol/L Glucose (74-99) mg/dL Calcium (8.4-10.2) mg/dL Total Bilirubin (0.2-1.3) mg/dL AST (17-59) U/L ALT (4-49) U/L C-Reactive Protein (<1.0) mg/dL Albumin (3.5-5.0) g/dL SARS-CoV-2 (PCR) Detected A (Not Detectd) 12/05/21 12/05/21 12/05/21 Range/Units 02:04 08:06 08:06 Plt Count (150-450) k/uL Neutrophils # (1.3-7.7) k/uL Lymphocytes # (1.0-4.8) k/uL D-Dimer 13.94 H (<0.60) mg/L FEU Chloride 109 H (98-107) mmol/L Glucose 141 H (74-99) mg/dL Calcium 8.2 L (8.4-10.2) mg/dL Total Bilirubin 1.4 H (0.2-1.3) mg/dL AST 90 H (17-59) U/L ALT 321 H (4-49) U/L C-Reactive Protein 3.2 H (<1.0) mg/dL Albumin 2.7 L (3.5-5.0) g/dL SARS-CoV-2 (PCR) (Not Detectd)
--- NOTE | 2021-12-06 12:22 | US ---
EXAMINATION TYPE: US liver DATE OF EXAM: 12/06/2021 COMPARISON: NONE CLINICAL HISTORY: chronic liver disease. Abnormal labs EXAM MEASUREMENTS: Liver Length: 15.6 cm Gallbladder Wall: 0.3 cm CBD: 0.5 cm Right Kidney: 10.6 x 7.0 x 6.3 cm Pancreas: Tail obscured by overlying bowel gas Liver: Obscured by overlying bowel gas Gallbladder: wnl Evidence for sonographic Morton's sign: Yes CBD: wnl Right Kidney: wnl IMPRESSION: 1. Right upper quadrant ultrasound appears unremarkable
--- NOTE | 2021-12-06 14:02 | P.PN ---
Subjective Progress Note Date: 12/06/21 Principal diagnosis: COVID-19 pneumonia 56-year-old previously healthy male, who presents to the emergency department on December 04, complaining of multiple complaints over the last 3 weeks, including fever, chills, cough, shortness of breath, muscle aches, weakness, etc. The pa indra apparently saw his primary doctor initially, and was treated with some corticosteroids and antibiotics. He states that that did nothing. More recently, he's been working with a tell how physician, and he was prescribed a steroid inhaler, colchicine, ivermectin, and a number of other treatments and therapies. The patient also apparently received Tessalon Perles, and a strong maybe codeine containing cough syrup. Unfortunately, his symptoms have progressed, and the patient is currently now admitted to the hospital. The patient is seen in room 479. Currently, the patient's getting oxygen at 7 L/m. Certainly, he is not a candidate for [facility]. The patient is not a candidate yet for IRENE. The patient had a chest x-ray which showed diffuse bilateral infiltrates. A CT angiogram showed bilateral diffuse groundglass opacities, but no pulmonary embolism, and Dopplers of the lower extremities were negative. The patient is a candidate for Decadron, Lovenox, and vitamin C, vitamin D3, and zinc. The patient has no past medical history, has only had a hernia repair, and is a lifelong nonsmoker. The patient is seen today 12/06/2021 in follow-up on the regular medical floor. He is currently resting fairly comfortably in bed. Awake and alert in no acute distress. He is maintaining O2 saturations in the 90s on 6 L high flow nasal cannula. He's been afebrile. Hemodynamically stable. He continues with a dry nonproductive cough. Dyspneic with minimal exertion. White count 8.8. Hemoglobin 16.0. Platelets 151. Sodium 135. Potassium 4.6. Creatinine 1.0. LDH 1042. He is continued on Symbicort, Ventolin, Decadron, Lovenox, vitamin supplements. 0.9% normal saline at ML's per hour. Objective - Vital Signs Vital signs: Vital Signs Temp 98.3 F 12/06/21 08:30 Pulse 80 12/06/21 08:30 Resp 17 12/06/21 08:30 BP 118/81 12/06/21 08:30 Pulse Ox 90 L 12/06/21 08:30 Intake & Output 12/05/21 12/06/21 12/06/21 18:59 06:59 18:59 Intake Total 600 Output Total 200 Balance 600 -200 Intake: Intake, IV Titration 600 Amount Sodium Chloride 0.9% 1, 600 000 ml @ 75 mls/hr IV . [id number] Rx#:[id number] Output: Urine 200 Other: Voiding Method Urinal - Exam GENERAL EXAM: Alert, pleasant 56-year-old male patient, on 6 L high flow nasal cannula, fairly comfortable in no apparent distress. HEAD: Normocephalic. EYES: Normal reaction of pupils, equal size. NOSE: Clear with pink turbinates. THROAT: No erythema or exudates. NECK: No masses, no JVD. CHEST: No chest wall deformity. LUNGS: Equal air entry with faint crackles in the posterior bases. CVS: S1 and S2 normal with no audible murmur, regular rhythm. ABDOMEN: No hepatosplenomegaly, normal bowel sounds, no guarding or rigidity. SPINE: No scoliosis or deformity SKIN: No rashes CENTRAL NERVOUS SYSTEM: No focal deficits, tone is normal in all 4 extremities. EXTREMITIES: There is no peripheral edema. No clubbing, no cyanosis. Peripheral pulses are intact. - Labs CBC & Chem 7: 12/06/21 08:42 12/06/21 08:42 Labs: Abnormal Lab Results - Last 24 Hours (Table) 12/05/21 12/06/21 Range/Units 12:55 08:42 Sodium 135 L (137-145) mmol/L Calcium 8.1 L (8.4-10.2) mg/dL Total Bilirubin 1.7 H (0.2-1.3) mg/dL AST 90 H (17-59) U/L ALT 245 H (4-49) U/L Lactate Dehydrogenase 1042 H (313-618) U/L Total Protein 6.0 L (6.3-8.2) g/dL Albumin 2.5 L (3.5-5.0) g/dL Urine Protein Trace H (Negative) Microbiology - Last 24 Hours (Table) 12/05/21 02:04 Blood Culture - Preliminary Blood No Growth after 24 hours Assessment and Plan Assessment: 1 Acute hypoxemic respiratory failure secondary to COVID-19 pneumonia, not va ccinated. Outside the window for Remdesivir. Not qualify for Baricitinib. 2 Elevated inflammatory markers secondary to above 3 Mild transaminitis secondary to above 4 Mild hemoconcentration likely secondary to dehydration 5 Mild thrombocytopenia Plan: The patient was seen and evaluated Currently on 6 L high flow nasal cannula Continued on Decadron, Lovenox, vitamin supplements Continue Symbicort, albuterol Titrate the FiO2 as tolerated Increase his activity as tolerated Continue to work with the incentive spirometer Follow-up chest x-ray and labs in a.m. We will continue to follow I, the cosigning physician, performed a history & physical examination of the patient. Lungs sounds with faint crackles in the bilateral bases. Maintaining O2 saturations in the 90s on 6 liters high flow nasal cannula. I discussed the assessment and plan of care with my nurse practitioner, Kelle Jose. I attest to the above note as dictated by her.
[2021-12-06 15:33] LABS: Hepatitis A Antibody IgM Nonreactive (Nonreactive); Hepatitis B Core IgM Nonreactive (Nonreactive); Hepatitis B Surface Antigen Nonreactive (Nonreactive); Hepatitis C IgG Antibody Nonreactive (Nonreactive)
--- NOTE | 2021-12-06 17:40 | PN ---
PROGRESS NOTE DATE OF SERVICE: 12/06/2021 This 56-year-old gentleman admitted with COVID-19 as well as bilateral interstitial pneumonia also had hypoxia. The patient also has hepatic enzyme elevations. D-dimer is elevated. Patient is being closely monitored. Multiple consultants are following the patient closely. Total bilirubin is 1.7 at this time. Past medical history reviewed. REVIEW OF SYSTEMS: CARDIOVASCULAR SYSTEM: No angina. RESPIRATION: As mentioned earlier. GI: As mentioned earlier. : No dysuria. NERVOUS SYSTEM: No numbness, weakness. CURRENT MEDICATIONS: Reviewed. They include Tylenol, Ventolin, vitamin C, Dulcolax, Symbicort, vitamin D3, dexamethasone. Other doses and other medications are reviewed. PHYSICAL EXAMINATION: Patient is alert and oriented x3. Pulse 89, blood pressure 114/70, respirations 17, temperature 97.4, pulse ox 94% on 6 L. HEENT: Conjunctivae normal. NECK: No jugular venous distention. CARDIOVASCULAR: S1, S2 muffled. RESPIRATION: Breath sounds diminished at the bases. A few scattered rhonchi and crackles. ABDOMEN: Soft, nontender. LEGS: No edema. No swelling. NERVOUS SYSTEM: No focal deficit. LABS: WBC 8.2, hemoglobin 16, sodium 135. Other labs are noted. Right upper quadrant ultrasound which was done today appears unremarkable. ASSESSMENT: 1. Acute COVID-19 infection with acute bilateral interstitial pneumonia with acute hypoxic respiratory failure secondary to COVID-19. 2. Acute superficial thrombosis of the left lower extremity. 3. Increased white count. 4. Increased hemoglobin. 5. Thrombocytopenia. 6. Elevated INR. 7. Increased random glucose. 8. Elevated bilirubin, AST, ALT, possibly hepatitis secondary to COVID-19. 9. Hypoalbuminemia with some mild protein-calorie malnutrition. 10.Ultrasound showing normal right upper quadrant features and no evidence of any chronic liver disease. RECOMMENDATIONS AND DISCUSSION: In this 56-year-old gentleman who presented with multiple complex medical issues, we will monitor the patient closely, continue the current medications, continue symptomatic treatment, continue with the bronchodilators, continue with steroids. Continue with Lovenox. Continue the rest of the medications. Repeat labs. Closely follow with multiple consultants. I also recommend hematology/oncology input as well. Prognosis guarded. Further recommendations to follow. MMODL / IJN: [id number] /
--- NOTE | 2021-12-06 20:37 | PN ---
PROGRESS NOTE DATE OF SERVICE: 12/06/2021 REASON FOR FOLLOWUP: COVID-19 pneumonia. INTERVAL HISTORY: The patient is afebrile. The patient is breathing slightly comfortably today. The patient denies having any chest pain or worsening cough or sputum production. No abdominal pain or diarrhea. PHYSICAL EXAMINATION: Blood pressure 111/75 with a pulse of 80, temperature of 97.5. He is 96% on 6 L nasal cannula. General description is a middle-aged male lying in bed in no distress. Respiratory system: Unlabored breathing, decreased intensity of breath sounds. No wheeze. Heart S1, S2. Regular rate and rhythm. Abdomen soft, no tenderness. Extremities with no edema of the feet. LABS: Hemoglobin is 16, white count 8.8, creatinine is 1.09. DIAGNOSTIC IMPRESSION AND PLAN: Patient acute respiratory failure secondary to COVID-19 pneumonia in this patient with minimal clinical improvement. Patient to continue dexamethasone, Lovenox, zinc and ascorbic acid along with respiratory support. Monitor his clinical course closely. MMODL / IJN: [id number] /
--- NOTE | 2021-12-06 21:24 | P.CONS ---
History of Present Illness - Reason for Consult Consult date: 12/06/21 SVT and elevated during active COVID infection Requesting physician: Amarilys Marr - Chief Complaint Covid - History of Present Illness Paxton is a 56 year old patient who has been home attempting to recover from COVID-Pneumonia, however continued to worsen so was brought to hospital hypoxic on room air at 83%. He was being treated by tele-health physician with Ivermecti n, Dexamthasone, Colchicine, multiple supplements, and antibiotics. On arrival his D-Dimer was over 30 thereforew we were asked to further evaluate. CTA negative for PE, Venous Doppler negative for DVT. He denies any personal or family history of thrombolic events, autoimmune or chronic inflammatory condition. Review of Systems All systems: negative Constitutional: Reports as per HPI Past Medical History Past Medical History: No Reported History History of Any Multi-Drug Resistant Organisms: None Reported Past Surgical History: Hernia Repair Additional Past Surgical History / Comment(s): Thumb Surgery May 2021 Past Anesthesia/Blood Transfusion Reactions: Postoperative Nausea & Vomiting (PONV) Past Psychological History: No Psychological Hx Reported Smoking Status: Former smoker Past Alcohol Use History: Daily Past Drug Use History: None Reported - Past Family History Father Additional Family Medical History / Comment(s): Heart Stent Mother Family Medical History: Cancer Additional Family Medical History / Comment(s): Medications and Allergies Home Medications Medication Instructions Recorded Confirmed Type Benzonatate [Tessalon Perles] 200 mg PO TID PRN 12/04/21 12/04/21 History Budesonide [Pulmicort Flexhaler] 2 puff INHALATION RT-BID 12/04/21 12/04/21 History Colchicine 0.6 mg PO HS 12/04/21 12/04/21 History Colchicine 1.2 mg PO DAILY 12/04/21 12/04/21 History Allergies Allergy/AdvReac Type Severity Reaction Status Date / Time No Known Allergies Allergy Verified 12/04/21 15:21 Physical Exam Vitals: Vital Signs Temp Pulse Resp BP Pulse Ox 12/06/21 08:30 98.3 F 80 17 118/81 90 L 12/06/21 05:27 97.9 F 72 17 113/78 97 12/06/21 01:06 98.0 F 74 16 118/80 96 12/05/21 21:44 97.8 F 90 15 123/82 95 12/05/21 18:00 97.6 F 81 20 118/75 95 Intake and Output 12/05/21 12/06/21 12/06/21 22:59 06:59 14:59 Output Total 200 Balance -200 Output: Urine 200 Other: Voiding Method Urinal - Constitutional General appearance: cooperative, mild distress - EENT Eyes: EOMI ENT: NA/AT - Neck Neck: normal ROM - Respiratory Respiratory: bilateral: diminished, rhonchi - Cardiovascular Rhythm: regularly irregular - Gastrointestinal General gastrointestinal: normal bowel sounds, soft - Integumentary Integumentary: pale - Neurologic Neurologic: CNII-XII intact - Musculoskeletal Musculoskeletal: generalized weakness - Psychiatric Psychiatric: A&O x's 3, appropriate affect, intact judgment & insight Results CBC & Chem 7: 12/06/21 08:42 12/06/21 08:42 Labs: Abnormal Lab Results - Last 24 Hours (Table) 12/05/21 12/06/21 Range/Units 12:55 08:42 Sodium 135 L (137-145) mmol/L Calcium 8.1 L (8.4-10.2) mg/dL Total Bilirubin 1.7 H (0.2-1.3) mg/dL AST 90 H (17-59) U/L ALT 245 H (4-49) U/L Lactate Dehydrogenase 1042 H (313-618) U/L Total Protein 6.0 L (6.3-8.2) g/dL Albumin 2.5 L (3.5-5.0) g/dL Urine Protein Trace H (Negative) Microbiology - Last 24 Hours (Table) 12/05/21 02:04 Blood Culture - Preliminary Blood No Growth after [address] scan - chest: report reviewed Venous US: report reviewed Assessment and Plan (1) Elevated d-dimer Narrative/Plan: this has already improved since admission. There is no evidence of thrombus at this time and no evidence of baseline increase risk, therefore anticoagulation at prophylaxic lovenox may continue. Current Visit: Yes Status: Acute Code(s): R79.89 - OTHER SPECIFIED ABNORMAL FINDINGS OF BLOOD CHEMISTRY SNOMED Code(s): 386050008 (2) Atypical pneumonia Current Visit: Yes Status: Acute Code(s): J18.9 - PNEUMONIA, UNSPECIFIED ORGANISM SNOMED Code(s): 935024210 (3) COVID-19 Current Visit: Yes Status: Acute Code(s): U07.1 - COVID-19 SNOMED Code(s): 037526636 (4) Hypoxia Current Visit: Yes Status: Acute Code(s): R09.02 - HYPOXEMIA SNOMED Code(s): 717210102 Plan: Physician Attest: I have completed the full history and physical and developed the above impression and plan, agree with dictation, dictated as ascribe
[2021-12-07 06:20] LABS: Cardiolipin Ab IgG Interp NEGATIVE (NEGATIVE); Cardiolipin Ab IgM Interp NEGATIVE (NEGATIVE); Cardiolipin IgA Antibody <2.0 U/mL; Cardiolipin IgM Antibody <1.5 U/mL
--- NOTE | 2021-12-07 07:07 | XR ---
EXAMINATION TYPE: XR chest 1V portable DATE OF EXAM: 12/07/2021 CLINICAL HISTORY: Difficulty breathing and covid progress study. TECHNIQUE: Single AP portable upright view of the chest is obtained. COMPARISON: Chest x-ray and CTA chest from 3 days earlier FINDINGS: Low lung volumes with bilateral multifocal increased opacity is greatest in the periphery redemonstrated. Cardiac silhouette size stable and within normal limits. Osseous structures are intac t. IMPRESSION: Low lung volumes with bilateral multifocal increased opacities greatest in the periphery consistent with covid-19 infection are redemonstrated. No significant change from most recent priors.
[2021-12-07] MEDS: SYMBICORT 160-4.5 MCG INHALER INHALATION SCH ×2 (08:52→19:16)
[2021-12-07] MEDS: ALBUTEROL HFA INHALER INHALATION SCH ×3 (08:52→19:16)
[2021-12-07] MEDS: ENOXAPARIN 40 MG/0.4 ML SYRINGE SQ SCH (09:07)
[2021-12-07] MEDS: ZINC SULFATE 220 MG CAP PO SCH (09:07)
[2021-12-07] MEDS: CHOLECALCIFEROL 25 MCG (1000 IU) TABLET PO SCH (09:07)
[2021-12-07] MEDS: DEXAMETHASONE SOD PHOSPHATE 10 MG/ML 1 ML VIAL IV SCH (09:07)
[2021-12-07] MEDS: ASCORBIC ACID 500 MG TAB PO SCH (09:07)
[2021-12-07] MEDS: FAMOTIDINE 20 MG TAB PO SCH (09:07)
[2021-12-07 11:35] LABS: Basophils # (A) 0.03 X 10*3/uL (0.00-0.10); Basophils % (A) 0.3 %; Eosinophils # (A) 0.12 X 10*3/uL (0.04-0.35); Eosinophils % (A) 1.4 %; HCT 44.5 % (39.6-50.0); Lymphocytes # (A) 1.68 X 10*3/uL (0.90-5.00); Lymphocytes % (A) 18.9 %; MCH 30.8 pg (27.0-32.0); MCHC 33.7 g/dL (32.0-37.0); MCV 91.4 fL (80.0-97.0); Mean Platelet Volume 11.5 fL (9.5-12.2); Monocytes # (A) 0.75 X 10*3/uL (0.20-1.00); Monocytes % (A) 8.4 %; Neutrophils # (A) 6.24 X 10*3/uL (1.80-7.70); Neutrophils % (A) 70.3 %; Platelet Count 153 X 10*3/uL (140-440); RBC 4.87 X 10*6/uL (4.40-5.60); WBC 8.88 X 10*3/uL (4.50-10.00)
[2021-12-07 12:04] LABS: African American GFR (CKD) 110.7 (60.0-200.0); Albumin 2.6 g/dL (3.8-4.9); Albumin/Globulin Ratio 0.9 (1.60-3.17); Anion Gap 8.3 mmol/L (10.00-18.00); BUN/Creat Ratio 16.36 Ratio (12.00-20.00); Blood Urea Nitrogen 14.1 mg/dL (9.0-27.0); C Reactive Protein 1.5 mg/dL (0.00-0.80); Carbon Dioxide 24.6 mmol/L (20.0-27.5); Globulin 2.9 g/dL (1.6-3.3); Non-African American GFR(CKD) 95.5 (60.0-200.0); Potassium 4.3 mmol/L (3.5-5.5); Total Bilirubin 1.2 mg/dL (0.30-1.20); Total Protein 5.4 g/dL (6.2-8.2)
[2021-12-07] MEDS ORDERED: guaiFENesin 600 MG TABLET.ER PO PRN (12:26)
[2021-12-07] MEDS ORDERED: FLUTICASONE 50MCG/SPRAY NASAL 16GM EA NOSTRIL PRN (12:26)
[2021-12-07] MEDS: DEXTROSE 5%-0.9% NACL 1,000 ML IV SCH (12:34)
[2021-12-07 14:20] VITALS: BMI 30.5
--- NOTE | 2021-12-07 15:01 | P.PN ---
Subjective Progress Note Date: 12/07/21 Principal diagnosis: COVID-19 pneumonia 56-year-old previously healthy male, who presents to the emergency department on December 04, complaining of multiple complaints over the last 3 weeks, including fever, chills, cough, shortness of breath, muscle aches, weakness, etc. The pa indra apparently saw his primary doctor initially, and was treated with some corticosteroids and antibiotics. He states that that did nothing. More recently, he's been working with a tell how physician, and he was prescribed a steroid inhaler, colchicine, ivermectin, and a number of other treatments and therapies. The patient also apparently received Tessalon Perles, and a strong maybe codeine containing cough syrup. Unfortunately, his symptoms have progressed, and the patient is currently now admitted to the hospital. The patient is seen in room 479. Currently, the patient's getting oxygen at 7 L/m. Certainly, he is not a candidate for REM. The patient is not a candidate yet for IRENE. The patient had a chest x-ray which showed diffuse bilateral infiltrates. A CT angiogram showed bilateral diffuse groundglass opacities, but no pulmonary embolism, and Dopplers of the lower extremities were negative. The patient is a candidate for Decadron, Lovenox, and vitamin C, vitamin D3, and zinc. The patient has no past medical history, has only had a hernia repair, and is a lifelong nonsmoker. The patient is seen today 12/06/2021 in follow-up on the regular medical floor. He is currently resting fairly comfortably in bed. Awake and alert in no acute distress. He is maintaining O2 saturations in the 90s on 6 L high flow nasal cannula. He's been afebrile. Hemodynamically stable. He continues with a dry nonproductive cough. Dyspneic with minimal exertion. White count 8.8. Hemoglobin 16.0. Platelets 151. Sodium 135. Potassium 4.6. Creatinine 1.0. LDH 1042. He is continued on Symbicort, Ventolin, Decadron, Lovenox, vitamin supplements. 0.9% normal saline at ML's per hour. The patient is seen today 12/07/2021 in follow-up on the regular medical floor. He sitting up in bed. Awake and alert in no acute distress. Currently maintaining O2 saturations in the low 90s on 6 L high flow nasal cannula. He has 0.9 normal saline at 75 ML's per hour. Dopplers of lower extremity were negative for DVT. Computed tomography scan was negative for pulmonary embolism. Chest x-ray continued to show bilateral patchy opacities consistent with COVID- 19 pneumonia. He is continued on Decadron, Lovenox, vitamin supplements. Remains on Symbicort and albuterol. Mucinex as needed. White count 8.8. Hemoglobin 15.0. Lymphocytes 1.68. D-dimer 10.3. Sodium 137. Potassium 4.3. Creatinine 0.9. LDH 329. C-reactive protein 1.5. Objective - Vital Signs Vital signs: Vital Signs Temp 97.4 F L 12/07/21 13:59 Pulse 97 12/07/21 13:59 Resp 18 12/07/21 13:59 BP 114/73 12/07/21 13:59 Pulse Ox 98 12/07/21 13:59 Intake & Output 12/06/21 12/07/21 12/07/21 18:59 06:59 18:59 Intake Total 990 Output Total 850 700 Balance -850 290 Weight 102.058 kg Intake: Intake, IV Titration 750 Amount Sodium Chloride 0.9% 1, 750 000 ml @ 75 mls/hr IV . [id number] [facility], [facility] Rx#:[id number] Oral 240 Output: Urine 850 700 Other: Voiding Method Urinal Urinal # Voids 1 # Bowel Movements 1 - Exam GENERAL EXAM: Alert, pleasant 56-year-old male patient, on 6 L high flow nasal cannula, fairly comfortable in no apparent distress. HEAD: Normocephalic. EYES: Normal reaction of pupils, equal size. NOSE: Clear with pink turbinates. THROAT: No erythema or exudates. NECK: No masses, no JVD. CHEST: No chest wall deformity. LUNGS: Equal air entry with faint crackles in the posterior bases. CVS: S1 and S2 normal with no audible murmur, regular rhythm. ABDOMEN: No hepatosplenomegaly, normal bowel sounds, no guarding or rigidity. SPINE: No scoliosis or deformity SKIN: No rashes CENTRAL NERVOUS SYSTEM: No focal deficits, tone is normal in all 4 extremities. EXTREMITIES: There is no peripheral edema. No clubbing, no cyanosis. Peripheral pulses are intact. - Labs CBC & Chem 7: 12/07/21 07:06 12/07/21 07:06 Labs: Abnormal Lab Results - Last 24 Hours (Table) 12/07/21 12/07/21 12/07/21 Range/Units 07:06 07:06 07:06 Immature Gran # 0.06 H (0.00-0.04) X 10*3/uL D-Dimer 10.33 H (<0.60) mg/L FEU Anion Gap 8.30 L (10.00-18.00) mmol/L Calcium 8.0 L (8.7-10.3) mg/dL AST 70 H (14-35) U/L ALT 261 H (10-49) U/L Lactate Dehydrogenase 329 H (120-246) U/L C-Reactive Protein 1.50 H (0.00-0.80) mg/dL Total Protein 5.4 L (6.2-8.2) g/dL Albumin 2.6 L (3.8-4.9) g/dL Albumin/Globulin Ratio 0.90 L (1.60-3.17) g/dL Microbiology - Last 24 Hours (Table) 12/05/21 02:04 Blood Culture - Preliminary Blood No Growth after 48 hours Assessment and Plan Assessment: 1 Acute hypoxemic respiratory failure secondary to COVID-19 pneumonia, not vaccinated. Outside the window for Remdesivir. Not qualify for Baricitinib. 2 Elevated inflammatory markers secondary to above 3 Mild transaminitis secondary to above 4 Mild hemoconcentration likely secondary to dehydration 5 Mild thrombocytopenia Plan: The patient was seen and evaluated Currently on 6 L high flow nasal cannula Continued on Decadron, Lovenox, vitamin supplements Continue Symbicort, albuterol Titrate the FiO2 as tolerated Increase his activity as tolerated Continue to work with the incentive spirometer The patient's diagnosis and treatment plan was discussed in detail with him again by Dr. Kaiser We will continue to follow I, the cosigning physician, performed a history & physical examination of the patient. Lungs sounds with faint crackles in the bilateral bases. Maintaining O2 saturations in the 90s on 6 liters high flow nasal cannula. I discussed the assessment and plan of care with my nurse practitioner, Kelle Jose. I attest to the above note as dictated by her.
--- NOTE | 2021-12-07 16:34 | P.PN ---
Subjective This is a pleasant 56 years old male with no significant past medical history presents with respiratory symptoms most likely secondary to bilateral: Pneumonia and acute hypoxic respiratory failure, need in 6 L of oxygen per minute to keep his oxygen saturation above 90%, with treated by dexamethasone 6 mg daily besides multiple vitamins unfold closely by pulmonary service. Also he is on normal saline 75 mm/h which is changed today to D5 normal saline at same rate. Patient been symptoms was poor appetite and poor eating however he started pic yobany up today. Well however we started him on a ensure and consult dietitian. Procalcitonin was negative at 0.09, hepatitis panel negative, liver ultrasound is negative. Chest x-ray from today showing bilateral pneumonia with no change. D-dimer at 10, LDH is significantly decreased with 329 and CRP to 1.5. Liver enzymes still slightly elevated. I discussed his illness and all his questions were answered Objective - Vital Signs Vital signs: Vital Signs Temp 97.7 F 12/07/21 08:33 Pulse 73 12/07/21 08:33 Resp 18 12/07/21 08:33 BP 112/75 12/07/21 08:33 Pulse Ox 91 L 12/07/21 08:33 Intake & Output 12/06/21 12/07/21 12/07/21 18:59 06:59 18:59 Intake Total 990 Output Total 850 700 Balance -850 290 Intake: Intake, IV Titration 750 Amount Sodium Chloride 0.9% 1, 750 000 ml @ 75 mls/hr IV . [id number] [facility] Rx#:[id number] Oral 240 Output: Urine 850 700 Other: Voiding Method Urinal Urinal # Voids 1 # Bowel Movements 1 - Exam GENERAL: The patient is alert and oriented x3, not in any acute distress. Well developed, well nourished. HEENT: Pupils are round and equally reacting to light. EOMI. No scleral icterus. No conjunctival pallor. Normocephalic, atraumatic. No pharyngeal erythema. No thyromegaly. CARDIOVASCULAR: S1 and S2 present. No murmurs, rubs, or gallops. -PULMONARY: Chest is clear to auscultation, no wheezing, Decreased bilateral crepitation ABDOMEN: Soft, nontender, nondistended, normoactive bowel sounds. No palpable organomegaly. MUSCULOSKELETAL: No joint swelling or deformity. EXTREMITIES: No cyanosis, clubbing, or pedal edema. NEUROLOGICAL: Gross neurological examination did not reveal any focal deficits. SKIN: No rashes. no petechiae. - Labs CBC & Chem 7: 12/07/21 07:06 12/07/21 07:06 Labs: Abnormal Lab Results - Last 24 Hours (Table) 12/07/21 12/07/21 12/07/21 Range/Units 07:06 07:06 07:06 Immature Gran # 0.06 H (0.00-0.04) X 10*3/uL D-Dimer 10.33 H (<0.60) mg/L FEU Anion Gap 8.30 L (10.00-18.00) mmol/L Calcium 8.0 L (8.7-10.3) mg/dL AST 70 H (14-35) U/L ALT 261 H (10-49) U/L Lactate Dehydrogenase 329 H (120-246) U/L C-Reactive Protein 1.50 H (0.00-0.80) mg/dL Total Protein 5.4 L (6.2-8.2) g/dL Albumin 2.6 L (3.8-4.9) g/dL Albumin/Globulin Ratio 0.90 L (1.60-3.17) g/dL Microbiology - Last 24 Hours (Table) 12/05/21 02:04 Blood Culture - Preliminary Blood No Growth after 48 hours Assessment and Plan Assessment: Bilateral Covid pneumonia Acute hypoxic respiratory failure Increased inflammatory markers Mildly elevated liver enzymes secondary to Covid infection Poor appetite secondary to Covid Plan: This is a pleasant 56 years old male who presents with bilateral covid pneumonia Continue with dexamethasone Continue with vitamin C, vitamin D and zinc Pulmonary consult Labs and medication were reviewed.. Continue same treatment. Continue with symptomatic treatment. Resume home medication. Monitor lytes and vitals. DVT and GI prophylaxis. Further recommendationsas per clinical course of the patient DVT prophylaxis: Subcutaneous Lovenox GI Prophylaxis: Pepcid Prognosis is guarded
--- NOTE | 2021-12-07 18:44 | PN ---
PROGRESS NOTE DATE OF SERVICE: 12/07/2021 REASON FOR FOLLOWUP: COVID-19 pneumonia. INTERVAL HISTORY: The patient is afebrile. The patient is breathing slightly comfortably. The patient denies having any chest pain. No worsening cough or sputum production. No abdominal pain or diarrhea. PHYSICAL EXAMINATION: Blood pressure is 114/73 with a pulse of 97, temperature 97.5. He is 93% on 6 L nasal cannula. General description is a middle-aged male lying in bed in no distress. Respiratory system: Unlabored breathing, decreased intensity of breath sounds. No wheeze. Heart S1, S2. Regular rate and rhythm. Abdomen soft, no tenderness. LABS: Hemoglobin is 15, white count 8.8. D-dimer is 10.3. Creatinine is 0.9. DIAGNOSTIC IMPRESSION AND PLAN: Patient with acute respiratory failure secondary to COVID-19 pneumonia. Did have minimal clinical improvement. Patient to continue with dexamethasone, Lovenox, zinc and ascorbic acid along with respiratory support. Monitor clinical course closely. MMODL / IJN: [id number] /
[2021-12-08] MEDS: DEXTROSE 5%-0.9% NACL 1,000 ML IV SCH ×2 (00:58→13:13)
[2021-12-08] MEDS: ZINC SULFATE 220 MG CAP PO SCH (09:05)
[2021-12-08] MEDS: CHOLECALCIFEROL 25 MCG (1000 IU) TABLET PO SCH (09:05)
[2021-12-08] MEDS: ENOXAPARIN 40 MG/0.4 ML SYRINGE SQ SCH (09:05)
[2021-12-08] MEDS: ASCORBIC ACID 500 MG TAB PO SCH (09:05)
[2021-12-08] MEDS: FAMOTIDINE 20 MG TAB PO SCH (09:05)
[2021-12-08] MEDS: DEXAMETHASONE SOD PHOSPHATE 10 MG/ML 1 ML VIAL IV SCH (09:05)
[2021-12-08] MEDS: SYMBICORT 160-4.5 MCG INHALER INHALATION SCH ×2 (09:18→20:22)
[2021-12-08] MEDS: ALBUTEROL HFA INHALER INHALATION SCH ×3 (09:18→20:22)
--- NOTE | 2021-12-08 12:14 | P.PN ---
Subjective Progress Note Date: 12/08/21 Principal diagnosis: COVID pneumonia SVT Overall improving slowly. Objective - Vital Signs Vital signs: Vital Signs Temp 97.9 F 12/08/21 08:57 Pulse 75 12/08/21 08:57 Resp 18 12/08/21 08:57 BP 114/74 12/08/21 08:57 Pulse Ox 94 L 12/08/21 08:57 Intake & Output 12/07/21 12/08/21 12/08/21 18:59 06:59 18:59 Intake Total 1160 Output Total 1000 1360 280 Balance 160 -1360 -280 Weight 102.058 kg Intake: Oral 1160 Output: Urine 1000 1360 280 Other: Voiding Method Urinal Urinal Urinal # Voids 2 3 # Bowel Movements 0 - Exam Due to concerns of COVID-19 detection/exposure, in an effort to limit healthcare providers and transmission, parts of the encounter may of been obtained through chart review, family members, telephone/video visits, and/or discussion with primary team/nursing and ancillary staff. - Labs CBC & Chem 7: 12/07/21 07:06 12/07/21 07:06 Labs: Microbiology - Last 24 Hours (Table) 12/05/21 02:04 Blood Culture - Preliminary Blood No Growth after 72 hours Assessment and Plan Plan: Mr. Anderson is a 56 yo male here with COVID pneumonia, found to have elevated D dimer and leg swelling. Work up with LE doppler consistent with SVT. Overall improving slowly with downtrending Ddimer although remains very high. CBC normal. Continue with COVID treatment as per primary/pulm/ID teams. Continue prophylactic lovenox. Due to concerns of COVID-19 detection/exposure, in an effort to limit healthcare providers and transmission, parts of the encounter may of been obtained through chart review, family members, telephone/video visits, and/or discussion with primary team/nursing and ancillary staff.
--- NOTE | 2021-12-08 14:12 | P.PN ---
Subjective Progress Note Date: 12/08/21 Principal diagnosis: Shortness of breath On 12/08/2021 patient seen in follow-up on medical surgical floor, he is breathing comfortably, he states he is improving, his cough is improving, no complaints of chest discomfort, currently on 6 L of oxygen pulse ox of 94 of 96%. Vitals are stable, no fever or chills, continues on Decadron 6 mg daily, continues on prophylactic Lovenox daily, albuterol, Symbicort, multivitamins, and Mucinex. He remains on IV hydration with D5 0.9 and rate of 75 ML per hour. Last chest x-ray from yesterday shows low lung volumes with bilateral multifocal increased opacities consistent with COVID-19 pneumonia. No significant change compared to the prior exam. Objective - Vital Signs Vital signs: Vital Signs Temp 97.9 F 12/08/21 08:57 Pulse 75 12/08/21 08:57 Resp 18 12/08/21 08:57 BP 114/74 12/08/21 08:57 Pulse Ox 94 L 12/08/21 08:57 Intake & Output 12/07/21 12/08/21 12/08/21 18:59 06:59 18:59 Intake Total 1160 Output Total 1000 1360 280 Balance 160 -1360 -280 Weight 102.058 kg Intake: Oral 1160 Output: Urine 1000 1360 280 Other: Voiding Method Urinal Urinal Urinal # Voids 2 3 # Bowel Movements 0 - Exam GENERAL EXAM: Alert, 56-year-old white male, on 6 L of oxygen pulse ox of 94- 96% comfortable in no apparent distress. HEAD: Normocephalic/atraumatic. EYES: Normal reaction of pupils, equal size. Conjunctiva pink, sclera white. NOSE: Clear with pink turbinates. THROAT: No erythema or exudates. NECK: No masses, no JVD, no thyroid enlargement, no adenopathy. CHEST: No chest wall deformity. Symmetrical expansion. LUNGS: Equal air entry with minimal bibasilar crackles CVS: Regular rate and rhythm, normal S1 and S2, no gallops, no murmurs, no rubs ABDOMEN: Soft, nontender. No hepatosplenomegaly, normal bowel sounds, no guarding or rigidity. EXTREMITIES: No clubbing, no edema, no cyanosis, 2+ pulses and upper and lower extremities. MUSCULOSKELETAL: Muscle strength and tone normal. SPINE: No scoliosis or deformity SKIN: No rashes CENTRAL NERVOUS SYSTEM: Alert and oriented -3. No focal deficits, tone is normal in all 4 extremities. PSYCHIATRIC: Alert and oriented -3. Appropriate affect. Intact judgment and insight. - Labs CBC & Chem 7: 12/07/21 07:06 12/07/21 07:06 Labs: Microbiology - Last 24 Hours (Table) 12/05/21 02:04 Blood Culture - Preliminary Blood No Growth after 72 hours Assessment and Plan Plan: Assessment: #1. Acute hypoxic respiratory failure related to acute COVID-19 related pneumonia, patient presented to the emergency department on 12/04/2021 with 3 week history of symptoms. He is not vaccinated against COVID-19. He took ivermectin, corticosteroids and antibiotics on an outpatient basis. He was outside the window for Remdesivir, currently remains on Decadron, Lovenox, vitam in C, vitamin D3 and zinc #2. Elevated inflammatory markers, related to the above, improving #3. Elevated d-dimer which is improving, with possible left superficial vein thrombosis in the left popliteal fossa and upper calf, hematology is following, patient remains on prophylactic dose Lovenox 40 mg daily #4. Mild transaminitis, related to COVID 19, improving #5. Mild thrombocytopenia, improved Plan: Continue current medical treatment Continue current dose Decadron, continue Lovenox Patient was found to have a superficial vein thrombosis in the left popliteal fossa No evidence of DVT D-dimer is improving Continue with Lovenox 40 mg daily Inflammatory markers are improving Clinically patient remains stable, breathing comfortably, Patient was encouraged to set up in the chair Increase activity as tolerated I performed a history & physical examination of the patient and discussed their management with my nurse practitioner, Anusha Perry. I reviewed the nurse practitioner's note and agree with the documented findings and plan of care. Lung sounds are positive for diffuse crackles throughout the lung [place]. The findings and the impression was discussed with the patient. I attest to the documentation by the nurse practitioner. Time with Patient: Less than 30
--- NOTE | 2021-12-08 20:30 | P.PN ---
Subjective This is a pleasant 56 years old male with no significant past medical history presents with respiratory symptoms most likely secondary to bilateral: Pneumonia and acute hypoxic respiratory failure, need in 6 L of oxygen per minute to keep his oxygen saturation above 90%, with treated by dexamethasone 6 mg daily besides multiple vitamins unfold closely by pulmonary service. Also he is on normal saline 75 mm/h which is changed today to D5 normal saline at same rate. Patient been symptoms was poor appetite and poor eating however he started pic yobany up today. Well however we started him on a ensure and consult dietitian. Procalcitonin was negative at 0.09, hepatitis panel negative, liver ultrasound is negative. Chest x-ray from today showing bilateral pneumonia with no change. D-dimer at 10, LDH is significantly decreased with 329 and CRP to 1.5. Liver enzymes still slightly elevated. I discussed his illness and all his questions were answered 12/28/2021 Patient is awake and alert, if his little lethargic but no significant respira tory symptoms, no dyspnea while sitting in bed most of the time. No chest pain. No significant coughing. He is hemodynamically stable. His oxygen saturation is stable with less requirement from 6 down to 5 L/m of oxygen via nasal cannula. No labs from today. He remains on dexamethasone, vitamin C, D and zinc. His appetite improving and is now eating 50-100% of his diet. Discontinue IV fluids Objective - Vital Signs Vital signs: Vital Signs Temp 97.9 F 12/08/21 08:57 Pulse 75 12/08/21 08:57 Resp 18 12/08/21 08:57 BP 114/74 12/08/21 08:57 Pulse Ox 94 L 12/08/21 08:57 Intake & Output 12/07/21 12/08/21 12/08/21 18:59 06:59 18:59 Intake Total 1160 Output Total 1000 1360 280 Balance 160 -1360 -280 Weight 102.058 kg Intake: Oral 1160 Output: Urine 1000 1360 280 Other: Voiding Method Urinal Urinal # Voids 2 3 # Bowel Movements 0 - Exam GENERAL: The patient is alert and oriented x3, not in any acute distress. Well developed, well nourished. HEENT: Pupils are round and equally reacting to light. EOMI. No scleral icterus. No conjunctival pallor. Normocephalic, atraumatic. No pharyngeal erythema. No thyromegaly. CARDIOVASCULAR: S1 and S2 present. No murmurs, rubs, or gallops. -PULMONARY: Chest is clear to auscultation, no wheezing, Decreased bilateral crepitation ABDOMEN: Soft, nontender, nondistended, normoactive bowel sounds. No palpable organomegaly. MUSCULOSKELETAL: No joint swelling or deformity. EXTREMITIES: No cyanosis, clubbing, or pedal edema. NEUROLOGICAL: Gross neurological examination did not reveal any focal deficits. SKIN: No rashes. no petechiae. - Labs CBC & Chem 7: 12/07/21 07:06 12/07/21 07:06 Labs: Abnormal Lab Results - Last 24 Hours (Table) 12/07/21 12/07/21 Range/Units 07:06 07:06 Immature Gran # 0.06 H (0.00-0.04) X 10*3/uL Anion Gap 8.30 L (10.00-18.00) mmol/L Calcium 8.0 L (8.7-10.3) mg/dL AST 70 H (14-35) U/L ALT 261 H (10-49) U/L Lactate Dehydrogenase 329 H (120-246) U/L C-Reactive Protein 1.50 H (0.00-0.80) mg/dL Total Protein 5.4 L (6.2-8.2) g/dL Albumin 2.6 L (3.8-4.9) g/dL Albumin/Globulin Ratio 0.90 L (1.60-3.17) g/dL Microbiology - Last 24 Hours (Table) 12/05/21 02:04 Blood Culture - Preliminary Blood No Growth after 72 hours Assessment and Plan Assessment: Bilateral Covid pneumonia Acute hypoxic respiratory failure Increased inflammatory markers Mildly elevated liver enzymes secondary to Covid infection Poor appetite secondary to Covid Plan: This is a pleasant 56 years old male who presents with bilateral covid pneumonia Continue with dexamethasone Continue with vitamin C, vitamin D and zinc Pulmonary consult Labs and medication were reviewed.. Continue same treatment. Continue with symptomatic treatment. Resume home medication. Monitor lytes and vitals. DVT and GI prophylaxis. Further recommendationsas per clinical course of the patient DVT prophylaxis: Subcutaneous Lovenox GI Prophylaxis: Pepcid Prognosis is guarded
--- NOTE | 2021-12-09 05:27 | PN ---
PROGRESS NOTE DATE OF SERVICE: 12/08/2021 REASON FOR FOLLOWUP: COVID-19 pneumonia. INTERVAL HISTORY: Patient is afebrile. The patient is afebrile. The patient is breathing slightly comfortably. He is on 5 L nasal cannula. Patient denies any chest pain. No worsening cough or sputum production. No abdominal pain or diarrhea. PHYSICAL EXAMINATION: Blood pressure 105/75 with a pulse of 95, temperature 98.1. He is 96% on 5 L nasal cannula. General description is a middle-aged male lying in bed in no distress. Respiratory system: Unlabored breathing, coarse breath sounds bilaterally. No wheeze. Heart S1, S2. Regular rate and rhythm. Abdomen soft, no tenderness. LABS: Hemoglobin is 16, white count 8.8, creatinine is 1.9. DIAGNOSTIC IMPRESSION AND PLAN: Patient with acute COVID-19 pneumonia in this patient who seems to have shown slow clinical improvement. The patient to continue with dexamethasone, Lovenox, zinc and ascorbic acid and respiratory support and monitor clinical course closely. MMODL / IJN: [id number] /
[2021-12-09] MEDS: CHOLECALCIFEROL 25 MCG (1000 IU) TABLET PO SCH (08:46)
[2021-12-09] MEDS: ZINC SULFATE 220 MG CAP PO SCH (08:46)
[2021-12-09] MEDS: DEXAMETHASONE SOD PHOSPHATE 10 MG/ML 1 ML VIAL IV SCH (08:47)
[2021-12-09] MEDS: ENOXAPARIN 40 MG/0.4 ML SYRINGE SQ SCH (08:47)
[2021-12-09] MEDS: FAMOTIDINE 20 MG TAB PO SCH (08:47)
[2021-12-09] MEDS: ASCORBIC ACID 500 MG TAB PO SCH (08:47)
[2021-12-09] MEDS: ALBUTEROL HFA INHALER INHALATION SCH ×2 (08:58→11:55)
[2021-12-09] MEDS: SYMBICORT 160-4.5 MCG INHALER INHALATION SCH (08:58)
[2021-12-09 11:09] VITALS: RESP 19
[2021-12-09 13:16] LABS: APTT 47 Sec(s) (<43); APTT 1:1 Mix 41 Sec(s) (<43); DRVVT 1:1 Mix 41 Sec(s) (<44); Dilute Russell Viper Venom 60 Sec(s) (<44)
[2021-12-09 15:32] VITALS: BP 111/76; PULSE 98; TEMP 97.9
--- NOTE | 2021-12-09 16:57 | P.PN ---
Subjective Progress Note Date: 12/09/21 Principal diagnosis: Shortness of breath On 12/08/2021 patient seen in follow-up on medical surgical floor, he is breathing comfortably, he states he is improving, his cough is improving, no complaints of chest discomfort, currently on 6 L of oxygen pulse ox of 94 of 96%. Vitals are stable, no fever or chills, continues on Decadron 6 mg daily, continues on prophylactic Lovenox daily, albuterol, Symbicort, multivitamins, and Mucinex. He remains on IV hydration with D5 0.9 and rate of 75 ML per hour. Last chest x-ray from yesterday shows low lung volumes with bilateral multifocal increased opacities consistent with COVID-19 pneumonia. No significant change compared to the prior exam. 12/09/2021 patient seen in follow-up on medical surgical floor, he is breathing comfortable, he sitting up in a recliner, in no acute distress, he is currently on 5 L of oxygen, pulse ox is 93%, no worsening dyspnea, no cough, no chest discomfort, patient had no fever or chills, subsequently his affect was dropped down to 3 L of oxygen his breathing has remained stable, pulse ox is 95% on 3 L, breathing comfortably, no fever or chills, blood pressure is been stable. Patient was able to get up to the bathroom, tolerates activity well, appetite is fair, no nausea vomiting or diarrhea. Patient continues on Decadron 6 mg daily, he is on Lovenox 40 mg daily, he is on multi-vitamins. His labs have been reviewed, d-dimer is improving and is down to 10.3, white blood cell count is 8.8, hemoglobin is 15, electrolytes and renal profile are unremarkable, procal was negative Objective - Vital Signs Vital signs: Vital Signs Temp 97.9 F 12/09/21 15:11 Pulse 98 12/09/21 15:11 Resp 19 12/09/21 15:11 BP 111/76 12/09/21 15:11 Pulse Ox 95 12/09/21 15:11 Intake & Output 12/08/21 12/09/21 12/09/21 18:59 06:59 18:59 Output Total 280 750 350 Balance -280 -750 -350 Output: Urine 280 750 350 Other: Voiding Method Urinal Urinal Urinal # Voids 1 # Bowel Movements 0 - Exam GENERAL EXAM: Alert, 56-year-old white male, on 3 L of oxygen pulse ox of 94- 96% comfortable in no apparent distress. HEAD: Normocephalic/atraumatic. EYES: Normal reaction of pupils, equal size. Conjunctiva pink, sclera white. NOSE: Clear with pink turbinates. THROAT: No erythema or exudates. NECK: No masses, no JVD, no thyroid enlargement, no adenopathy. CHEST: No chest wall deformity. Symmetrical expansion. LUNGS: Equal air entry with minimal bibasilar crackles CVS: Regular rate and rhythm, normal S1 and S2, no gallops, no murmurs, no rubs ABDOMEN: Soft, nontender. No hepatosplenomegaly, normal bowel sounds, no guarding or rigidity. EXTREMITIES: No clubbing, no edema, no cyanosis, 2+ pulses and upper and lower extremities. MUSCULOSKELETAL: Muscle strength and tone normal. SPINE: No scoliosis or deformity SKIN: No rashes CENTRAL NERVOUS SYSTEM: Alert and oriented -3. No focal deficits, tone is normal in all 4 extremities. PSYCHIATRIC: Alert and oriented -3. Appropriate affect. Intact judgment and insight. - Labs CBC & Chem 7: 12/07/21 07:06 12/07/21 07:06 Labs: Abnormal Lab Results - Last 24 Hours (Table) 12/06/21 Range/Units 15:20 Lupus Anticoag aPTT 47 H (<43) Sec(s) Dil Diego Viper Venom 60 H (<44) Sec(s) Microbiology - Last 24 Hours (Table) 12/05/21 02:04 Blood Culture - Preliminary Blood No Growth after 96 hours Assessment and Plan Plan: Assessment: #1. Acute hypoxic respiratory failure related to acute COVID-19 related pneumonia, patient presented to the emergency department on 12/04/2021 with 3 week history of symptoms. He is not vaccinated against COVID-19. He took ivermectin, corticosteroids and antibiotics on an outpatient basis. He was outside the window for Remdesivir, currently remains on Decadron, Lovenox, vitamin C, vitamin D3 and zinc #2. Elevated inflammatory markers, related to the above, improving #3. Elevated d-dimer which is improving, with possible left superficial vein thrombosis in the left popliteal fossa and upper calf, hematology is following, patient remains on prophylactic dose Lovenox 40 mg daily #4. Mild transaminitis, related to COVID 19, improving #5. Mild thrombocytopenia, improved Plan: Patient is down to 3 L of oxygen Made a stable O2 saturations, breathing comfortably O2 saturations above 92% Patient is tolerating ambulation in the room His had no acute events overnight Today's labs have been reviewed, d-dimer is improving, inflammatory markers are improving Patient remains on prophylactic dose Lovenox, and his CT chest and lower extremity Dopplers were negative for PE and DVT, and he was only found to have a possible left superficial vein thrombosis in the left popliteal fossa Hematology consultation note was noted Increase activity as tolerated Patient is stable for discharge home today on supplemental oxygen at 3-4 L/m He can complete outpatient course of Decadron for a total of 10 days Anticoagulation per hematology recommendations He continue multivitamins Outpatient follow-up with Dr. Kaiser in the office in 2 weeks I performed a history & physical examination of the patient and discussed their management with my nurse practitioner, Anusha Perry. I reviewed the nurse practitioner's note and agree with the documented findings and plan of care. Lung sounds are positive for diffuse crackles throughout the lung [place]. The findings and the impression was discussed with the patient. I attest to the documentation by the nurse practitioner. Time with Patient: Less than 30
--- NOTE | 2021-12-09 21:39 | P.PN ---
Progress Note - Text Progress Note Date: 12/09/21 REASON FOR FOLLOWUP: COVID-19 pneumonia. INTERVAL HISTORY: Patient remains to be afebrile. The patient is breathing slightly comfortably. He is on 3 L nasal cannula. Patient denies any chest pain. No worsening cough or sputum production. No abdominal pain or diarrhea. PHYSICAL EXAMINATION: Blood pressure 115/70 with a pulse of 95, temperature 98.1. He is 96% on 5 L nasal cannula. General description is a middle-aged male lying in bed in no distress. Respiratory system: Unlabored breathing, coarse breath sounds bilaterally. No wheeze. Heart S1, S2. Regular rate and rhythm. Abdomen soft, no tenderness. LABS: reviewed DIAGNOSTIC IMPRESSION AND PLAN: Patient with acute COVID-19 pneumonia in this patient who seems to have shown overall clinical improvement. The patient to finish therapy with dexamethasone, zinc and ascorbic acid and close out patient follow up
--- NOTE | 2021-12-09 22:32 | P.DS ---
Providers Date of admission: 12/04/21 17:42 Attending physician: Amarilys Marr Consults: 12/04/21 16:27 Consult Physician Routine Consulting Provider: Paxton Kaiser Consult Reason/Comments: covid Do you want consulting provider notified?: Yes Consult Physician Routine Consulting Provider: Shaun Barbosa Consult Reason/Comments: covid Do you want consulting provider notified?: Yes 12/05/21 16:22 Consult Physician Routine Consulting Provider: Tank German Consult Reason/Comments: leg venous thrombosis high d=dimer Do you want consulting provider notified?: Yes Primary care physician: Ronald Logan [facility] Course: Diagnoses: Bilateral Covid pneumonia Acute hypoxic respiratory failure Increased inflammatory markers Mildly elevated liver enzymes secondary to Covid infection Poor appetite secondary to Covid Hospital course: his is a pleasant 56 years old male with no significant past medical history presents with respiratory symptoms most likely secondary to bilateral: Pneumonia and acute hypoxic respiratory failure, need in 6 L of oxygen per minute to keep his oxygen saturation above 90%, with treated by dexamethasone 6 mg daily besides multiple vitamins unfold closely by pulmonary service. Also patient has some poor appetite upon admission which is significantly improved almost back to normal upon discharge. His respiratory symptoms significantly improved and his oxygen requirement went down from 6 L/m down to 3 L/m on the day of discharge. No significant tachypnea or coughing. He denies chest pain today. No change in urine or bowel habits. No fever. was cleared for discharge by all consultants including pulmonary and infectious disease team. Patient will be discharged on home dose of oxygen and he qualify for home oxygen. Also discharged on vitamins and dexamethasone and his prescription sent to the pharmacy upon his request. Problems and management plan were discussed with the patient and he verbalized understanding and acceptance Patient was found stable and can be discharged home in guarded prognosis however he needs follow-up as an outpatient. Patient was instructed to follow up with PCP Dr. Logan within one week and patient agrees With the appointments made for him on 12/12 Also patient was instructed to follow up with Dr. Kaiser in 2-3 weeks, and staff made appointment for the patient on 01/08 Physical exam Gen: patient is a AAOx3, no distress CVS: S1-S2, RRR, no murmur Lungs: B/L CTA, no wheezing Abdomen: soft, no distention, no tenderness, positive bowel sounds Extremity: no leg edema or induration Time spent more than 35 minutes Patient Condition at Discharge: Fair Plan - Discharge Summary Discharge Rx Participant: No New Discharge Prescriptions: New Dexamethasone [Decadron] 6 mg PO DAILY 4 Days #4 tablet guaiFENesin [Mucinex] 600 mg PO Q12HR PRN 5 Days #10 tablet PRN Reason: Congestion Zinc Sulfate [Orazinc] 220 mg PO DAILY #30 cap Famotidine [Pepcid] 40 mg PO DAILY 15 Days #15 tab Acetaminophen Tab [Tylenol] 650 mg PO Q6HR PRN tab PRN Reason: Mild Pain Or Fever > 100.5 Albuterol Inhaler [Ventolin Hfa Inhaler] 2 puff INHALATION RT-TID PRN #8 gm PRN Reason: Shortness Of Breath Or Wheezing Ascorbic Acid [Vitamin C] 1,000 mg PO DAILY #60 tab Fluticasone Nasal [place] [Flonase Nasal [place]] 2 spray EA NOSTRIL DAILY PRN #1 each PRN Reason: Allergy Symptoms Cholecalciferol [Vitamin D3 (25 Mcg = 1000 Iu)] 25 mcg PO DAILY #30 tablet Continue Benzonatate [Tessalon Perles] 200 mg PO TID PRN PRN Reason: Cough Budesonide [Pulmicort Flexhaler] 2 puff INHALATION RT-BID No Action Colchicine 0.6 mg PO HS Colchicine 1.2 mg PO DAILY Discharge Medication List Benzonatate [Tessalon Perles] 200 mg PO TID PRN 12/04/21 [History] Budesonide [Pulmicort Flexhaler] 2 puff INHALATION RT-BID 12/04/21 [History] Colchicine 0.6 mg PO HS 12/04/21 [History] Colchicine 1.2 mg PO DAILY 12/04/21 [History] Acetaminophen Tab [Tylenol] 650 mg PO Q6HR PRN tab 12/09/21 [Rx] Albuterol Inhaler [Ventolin Hfa Inhaler] 2 puff INHALATION RT-TID PRN #8 gm 12/09/21 [Rx] Ascorbic Acid [Vitamin C] 1,000 mg PO DAILY #60 tab 12/09/21 [Rx] Cholecalciferol [Vitamin D3 (25 Mcg = 1000 Iu)] 25 mcg PO DAILY #30 tablet 11/30 [Rx] Dexamethasone [Decadron] 6 mg PO DAILY 4 Days #4 tablet 12/09/21 [Rx] Famotidine [Pepcid] 40 mg PO DAILY 15 Days #15 tab 12/09/21 [Rx] Fluticasone Nasal [place] [Flonase Nasal [place]] 2 spray EA NOSTRIL DAILY PRN #1 each 12/09/21 [Rx] Zinc Sulfate [Orazinc] 220 mg PO DAILY #30 cap 12/09/21 [Rx] guaiFENesin [Mucinex] 600 mg PO Q12HR PRN 5 Days #10 tablet 12/09/21 [Rx] Follow up Appointment(s)/Referral(s): [facility] [NON-STAFF] - As Needed (oxygen) Paxton Kaiser DO [Doctor of Osteopathic Medicine] - 01/08/22 2:00 pm Ronald Logan DO [Primary Care Provider] - 12/12/21 4:20 pm (Virtual Appointment Office will call Patient ) Patient Instructions/Handouts: Coronavirus Disease 2019 (COVID-19), Using Oxygen at Home (DC) Activity/Diet/Wound Care/Special Instructions: heart healthy diet , low carbohydrate diet , 1800 kcal per day activity is restricted till you see your doctor Discharge Disposition: HOME SELF-CARE
[2021-12-10 19:41] LABS: LD Isoenzymes 1 16 % (19-38); LD Isoenzymes 2 36 % (30-43); LD Isoenzymes 3 19 % (16-26); LD Isoenzymes 4 10 % (3-12); LD Isoenzymes 5 19 % (3-14); Lactacte Dehydrogenase(LD) ISO 324 U/L (120-250)
== END 2021-12-09 17:40 | disposition home or self-care (01) | DRG 177 ==
LOC: EC 14:11 → 4SSUR 17:42
PROVIDERS: ADMIT Hospitalist; ATTEND Hospitalist
DX: U07.1 COVID-19 (principal); J12.82 Pneumonia due to coronavirus disease 2019; J96.01 Acute respiratory failure with hypoxia; E44.1 Mild protein-calorie malnutrition; I47.1 Supraventricular tachycardia; D69.6 Thrombocytopenia, unspecified; E86.0 Dehydration; Z68.30 Body mass index [BMI] 30.0-30.9, adult; Z87.891 Personal history of nicotine dependence; Z98.890 Other specified postprocedural states; Z82.49 Family history of ischemic heart disease and other diseases of the circulatory system; Z79.899 Other long term (current) drug therapy
CPT/HCPCS: 36415; 71045; 71275; 76705; 80053; 80074; 81003; 83605; 83615; 83625; 83880; 84145; 84484; 85025; 85379; 85610; 85613; 85730; 85732; 86140; 86146; 86147; 87040; 87502; 87636; 93005; 93970; 94640; 99285